=== PATIENT | female | born 1945 | race Caucasian/White ===

== ENCOUNTER 2016-09-09 16:32 | Emergency (ER) | payer OTHER ==
[~2016-09-09] VITALS: Ht 157.5 cm; Wt 76.9 kg
[~2016-09-09 16:32] MED LIST: ADVIN25/60 INH; ALBU1AER9 INH; ATR10 PO; CETI10TA10 PO; CHOL100027 PO; CMD10 PO; CMD5 PO; CYAN250T PO; DEXT30TA7 PO; DULO60CA44 PO; FLV1 PO; GABA1CAP4 PO; LORA0.5T12 PO; LRS10 PO; MULT-506 PO; OYST500T47 PO; PRT/20 PO; SALI1SPR3 NAE; SENN8.6T7 PO; SIMV10TA5 PO; TRAM-10 PO; TRAZ50TA35 PO; TRIA1SPR4
[2016-09-09 16:41] VITALS: TEMP 36.7
--- NOTE | 2016-09-09 17:05 | EMERGENCY ROOM VISIT NOTE ---
History Report prepared by Tim: Ever Hays Under the Supervision of: Dr. Regino Ramsey D.O. First contact with patient: 16:52 Chief Complaint: SHORTNESS OF BREATH Stated Complaint: SOB WEAK History of Present Illness The patient is a 70 year old female who presents to the Emergency Room with complaints of resolved shortness of breath that started around 1200 today. The patient was at work when she became short of breath, and she was not exerting herself at that time. She felt like she was having exacerbation of asthma so she used her rescue inhaler, which provided some relief. The shortness of breath lasted three hours in total. She denies chest pain, abdominal pain, diarrhea, leg pain or swelling. The patient has a history of PE for which she is on Coumadin. She was referred to the ED by her PCP. Per family, the patient has a microscopic bleeding somewhere in her body that sometimes causes her to be anemic. She takes iron supplements so her stools are always black. Source of History: patient, family Onset: 1200 today Position: other (respiratory) Quality: other (short of breath) Timing: resolved Modifying Factors (Relieving): other (inhaler) Associated Symptoms: No abdominal pain, No chest pain, No diarrhea Review of Systems See HPI for pertinent positives & negatives. A total of 10 systems reviewed and were otherwise negative. Past Medical & Surgical Medical Problems: (1) Anxiety (2) Asthma, mild persistent (3) Chronic back pain (4) Depression (5) Dyslipidemia (6) GERD (gastroesophageal reflux disease) (7) History of DVT (deep vein thrombosis) (8) History of pulmonary embolism (9) Hyperhomocysteinemia (10) RITA (iron deficiency anemia) (11) MTHFR mutation Surgical Problems: (1) H/O bilateral oophorectomy (2) Status post hysterectomy (3) Status post insertion of inferior vena caval filter Family History No pertinent family history Social History Smoking Status: Never Smoker Drug Use: none Marital Status: Housing Status: lives with family Occupation Status: employed Current/Historical Medications Scheduled Duloxetine Hcl (Cymbalta), 60 MG PO DAILY Ferrous Sulfate (Kp Ferrous Sulfate), 1 TAB PO TID Gabapentin (Neurontin), 300 MG PO BID Lorazepam (Ativan), 0.5 MG PO Q8 Pantoprazole (Protonix), 20 MG PO BID Simvastatin (Zocor), 10 MG PO HS Trazodone Hcl (Trazodone), 50 MG PO HS Warfarin Sodium (Coumadin), 5 MG PO WK Warfarin Sodium (Coumadin), 10 MG PO [id number] Scheduled PRN Albuterol Sulfate (Proair Respiclick), 2 PUFFS INH Q4 PRN for SOB/Wheezing Allergies Coded Allergies: Erythromycin (Verified Allergy, Intermediate, "VIOLENTLY ILL", 06/29/15) NSAIDs (Unverified Allergy, Intermediate, BLEEDING, 06/29/15) Cat Dander (Verified Adverse Reaction, Intermediate, nasal s/s, 06/29/15) POLLEN (Verified Adverse Reaction, Intermediate, "seasonal" - nasal s/s, ) Physical Exam Vital Signs Date Time Temp Pulse Resp B/P Pulse Ox O2 Delivery O2 Flow Rate FiO2 09/09/16 19:14 77 18 129/85 97 Room Air 09/09/16 18:14 78 14 115/63 96 Room Air 09/09/16 17:33 76 09/09/16 17:29 76 16 116/73 95 Room Air 09/09/16 17:22 Room Air 96 09/09/16 17:22 96 Room Air 09/09/16 17:22 96 Room Air 09/09/16 16:41 36.7 88 18 120/73 96 Room Air Physical Exam GENERAL: Patient is awake, alert, and in no acute distress. Patient is resting comfortably and showing no signs of anxiety EYES: The conjunctivae are clear. The pupils are round and reactive. EARS, NOSE, MOUTH AND THROAT: The nose is without any evidence of any deformity. Mucous membranes are moist tongue is midline NECK: The neck is nontender and supple. RESPIRATORY: Normal respiratory effort is noted there is no evidence of wheezing rhonchi or rales CARDIOVASCULAR: Regular rate and rhythm noted there no murmurs rubs or gallops normal S1 normal S2 GASTROINTESTINAL: The abdomen is soft. Bowel sounds are present in all quadrants. Abdomen is nontender MUSCULOSKELETAL/EXTREMITIES: There is no evidence of gross deformity full range of motion is noted in the hips and shoulders SKIN: There is no obvious evidence of any rash. There are no petechiae, pallor or cyanosis noted. Trace pedal edema left greater than right, no calf tenderness. NEUROLOGIC: Patient is awake alert and oriented x3. Medical Decision & Procedures ER Provider Diagnostic Interpretation: X-ray results as stated below per interpretation by me and the radiologist. CHEST ONE VIEW PORTABLE HISTORY: EVALUATE RESPIRATORY DISTRESS.DYSPNEA COMPARISON: Chest 06/1715. FINDINGS: Moderate to large hiatus hernia. The heart is normal in size. The lungs are clear. No pleural effusions. No pneumothorax. IMPRESSION: No significant change compared to the prior study. No acute process. Hiatus hernia. Electronically signed by: Mario Worthy M.D. 09/09/2016 5:14 PM Dictated Date/Time: 09/09/2016 5:13 PM CHEST CTA for PULMONARY ARTERIES CT DOSE: 519.28 mGy.cm HISTORY: Short of breath. TECHNIQUE: Multiaxial CT images of the chest were performed following the intravenous administration of contrast to evaluate the pulmonary arteries. Maximal intensity projection images were also obtained. COMPARISON STUDY: Chest CTA 05/04/2008. FINDINGS: Large hiatus hernia. No evidence for an aortic dissection. No evidence for pulmonary embolus. The heart is normal in size. No pleural or pericardial effusions. The visualized liver, spleen, adrenal glands are unremarkable. A 9 mm left thyroid nodule. A 5 mm right thyroid nodule. No mediastinal or hilar lymphadenopathy. Stable 1 cm left breast nodule. Therefore, this is likely benign. The central airways are patent. No pneumothorax. A stable 3 mm nodule within the right lower lobe on image 186. Therefore, this is considered to be benign. No new pulmonary nodules. Stable 4 mm nodule within the right lower lobe abutting the major fissure on image 158. This is also considered to be benign. IMPRESSION: 1. No evidence for pulmonary embolus. 2. Large hiatus hernia. 3. Additional stable findings as described above. Electronically signed by: Mario Worthy M.D. 09/09/2016 8:22 PM Dictated Date/Time: 09/09/2016 8:11 PM Laboratory Results 09/09/16 17:25 Red Blood Count 4.18, Mean Corpuscular Volume 86.8, Mean Corpuscular Hemoglobin 28.2, Mean Corpuscular Hemoglobin Concent 32.5, Mean Platelet Volume 10.4, Neutrophils (%) (Auto) 56.3, Lymphocytes (%) (Auto) 27.4, Monocytes (%) (Auto) 10.1, Eosinophils (%) (Auto) 5.1, Basophils (%) (Auto) 0.9, Neutrophils # (Auto ) 2.44, Lymphocytes # (Auto) 1.19, Monocytes # (Auto) 0.44, Eosinophils # (Auto ) 0.22, Basophils # (Auto) 0.04 09/09/16 17:25 Test 09/09/16 17:25 White Blood Count 4.34 K/uL (4.8-10.8) Red Blood Count 4.18 M/uL (4.2-5.4) Hemoglobin 11.8 g/dL (12.0-16.0) Hematocrit 36.3 % (37-47) Mean Corpuscular Volume 86.8 fL (80-100) Mean Corpuscular Hemoglobin 28.2 pg (25-34) Mean Corpuscular Hemoglobin Concent 32.5 g/dl (32-36) Platelet Count 280 K/uL (130-400) Mean Platelet Volume 10.4 fL (7.4-10.4) Neutrophils (%) (Auto) 56.3 % Lymphocytes (%) (Auto) 27.4 % Monocytes (%) (Auto) 10.1 % Eosinophils (%) (Auto) 5.1 % Basophils (%) (Auto) 0.9 % Neutrophils # (Auto) 2.44 K/uL (1.4-6.5) Lymphocytes # (Auto) 1.19 K/uL (1.2-3.4) Monocytes # (Auto) 0.44 K/uL (0.11-0.59) Eosinophils # (Auto) 0.22 K/uL (0-0.5) Basophils # (Auto) 0.04 K/uL (0-0.2) RDW Standard Deviation 42.8 fL (36.4-46.3) RDW Coefficient of Variation 13.5 % (11.5-14.5) Immature Granulocyte % (Auto) 0.2 % Immature Granulocyte # (Auto) 0.01 K/uL (0.00-0.02) Prothrombin Time 42.3 SECONDS (9.0-12.0) Prothromb Time International Ratio 3.7 (0.9-1.1) Activated Partial Thromboplast Time 40.6 SECONDS (21.0-31.0) Partial Thromboplastin Ratio 1.6 Anion Gap 5.0 mmol/L (3-11) Est Creatinine Clear Calc Drug Dose 53.7 ml/min Estimated GFR () 70.8 Estimated GFR (Non- 61.1 BUN/Creatinine Ratio 19.1 (10-20) Calcium Level 8.5 mg/dl (8.5-10.1) Total Bilirubin 0.2 mg/dl (0.2-1) Aspartate Amino Transf (AST/SGOT) 17 U/L (15-37) Alanine Aminotransferase (ALT/SGPT) 24 U/L (12-78) Alkaline Phosphatase 60 U/L (45-117) Troponin I < 0.015 ng/ml (0-0.045) Pro-B-Type Natriuretic Peptide 58 pg/ml (0-900) Total Protein 6.4 gm/dl (6.4-8.2) Albumin 3.4 gm/dl (3.4-5.0) Globulin 3.0 gm/dl (2.5-4.0) Albumin/Globulin Ratio 1.1 (0.9-2) Laboratory results per my review. ECG Indication: SOB/dyspnea Rate (beats per minute): 68 Rhythm: normal sinus Findings: T-wave inversion (Anterior), no ectopy Comparison ECG Date: 2015 Change: no significant change ED Course 1654: The patient was evaluated in room A9b. A complete history and physical examination were performed. 1927: Updated the patient. 2039: Reassessed the patient. Discussed the findings with her. She verbalized understanding and agreement. The patient is ready for discharge. Medical Decision Prior records/ancillary studies reviewed. Triage Nursing notes reviewed. Additional history obtained from the family. The patient's history was concerning for respiratory difficulties. Differential diagnosis: Etiologies such as infections, reactive airway disease, pneumonia, pneumothorax , COPD, CHF, cardiac ischemia, pulmonary embolism, musculoskeletal, gastrointestinal, as well as others were entertained. The patient is a 70-year-old female who presented to the emergency department for an evaluation of shortness of breath. The patient has a history of venous thrombolic disease and pulmonary embolism but is currently taking anticoagulation. The patient did not appear to have any acute ischemic abnormalities on EKG or cardiac biomarkers. CT the chest was obtained and no CT evidence for pulmonary and wasn't was noted. I discussed patient's laboratory and radiographic studies with her. She was encouraged to rest and avoid any strenuous I to E. She was also encouraged to continue all medications as prescribed and return to the emergency department immediately if symptoms change worsen or the need arises. Impression Primary Impression: SOB (shortness of breath) Scribe Attestation The scribe's documentation has been prepared under my direction and personally reviewed by me in its entirety. I confirm that the note above accurately reflects all work, treatment, procedures, and medical decision making performed by me. Departure Information Dispostion Home / Self-Care Referrals Isa Ang M.D. (PCP) Forms HOME CARE DOCUMENTATION FORM, IMPORTANT VISIT INFORMATION, Work Instructions Patient Instructions ED Dyspnea Shortness of Breath, My [facility] Additional Instructions Call your doctor in the morning to schedule follow-up appointment. Discussed the possibility that you may require further studies such as a stress test to further evaluate call your symptoms. Avoid any strenuous activity. Return to the emergency department immediately if symptoms change worsen or the need arises.
--- NOTE | 2016-09-09 17:17 | DIAGNOSTIC IMAGING REPORT ---
CHEST ONE VIEW PORTABLE HISTORY: EVALUATE RESPIRATORY DISTRESS.DYSPNEA COMPARISON: Chest 06/1715. FINDINGS: Moderate to large hiatus hernia. The heart is normal in size. The lungs are clear. No pleural effusions. No pneumothorax. IMPRESSION: No significant change compared to the prior study. No acute process. Hiatus hernia. Electronically signed by: Mario Worthy M.D. 09/09/2016 5:14 PM Dictated Date/Time: 09/09/2016 5:13 PM
[2016-09-09 17:22] VITALS: O2SAT 96; Ht 157.5 cm; Wt 76.9 kg
[2016-09-09] MEDS ORDERED: WARF5TAB90 PO (17:43)
[2016-09-09] MEDS ORDERED: SIMV10TA2 PO (17:43)
[2016-09-09] MEDS ORDERED: DULO60CA44 PO (17:43)
[2016-09-09] MEDS ORDERED: FERR1TAB13 PO (17:43)
[2016-09-09] MEDS ORDERED: TRAZ50TA35 PO (17:43)
[2016-09-09] MEDS ORDERED: GABA-113 PO (17:43)
[2016-09-09] MEDS ORDERED: WARF10TA PO (17:43)
[2016-09-09] MEDS ORDERED: PRT/20 PO (17:43)
[2016-09-09] MEDS ORDERED: ALBU18002 INH (17:43)
[2016-09-09] MEDS ORDERED: LORA-741 PO (17:43)
[2016-09-09 17:46] LABS: BASO % 0.9 %; BASO ABS # 0.04 K/uL (0-0.2); COMPLETE YES; EOS % 5.1 %; HEMATOCRIT 36.3 % (37-47); IG% 0.2 %; LYMPH % 27.4 %; LYMPH ABS # 1.19 K/uL (1.2-3.4); MEAN CELL VOLUME 86.8 fL (80-100); MEAN CORPUSCULAR HEMOGLOBIN 28.2 pg (25-34); MEAN CORPUSCULAR HGB CONC 32.5 g/dl (32-36); MEAN PLATELET VOLUME 10.4 fL (7.4-10.4); MONO % 10.1 %; NEUT % 56.3 %; PLATELET COUNT 280 K/uL (130-400); RED BLOOD COUNT 4.18 M/uL (4.2-5.4); WHITE BLOOD COUNT 4.34 K/uL (4.8-10.8)
[2016-09-09 18:00] LABS: PARTIAL THROMBOPLASTIN RATIO 1.6; PROTHROMBIN TIME (PATIENT) 42.3 SECONDS (9.0-12.0)
[2016-09-09 18:04] LABS: INR 3.7 (0.9-1.1)
[2016-09-09 18:05] LABS: ALT/SGPT 24 U/L (12-78); AST/SGOT 17 U/L (15-37); BLOOD UREA NITROGEN 18 mg/dl (7-18); BUN/CREATININE RATIO 19.1 (10-20); CALCIUM 8.5 mg/dl (8.5-10.1); CARBON DIOXIDE 30 mmol/L (21-32); CHLORIDE 108 mmol/L (98-107); CREATININE 0.95 mg/dl (0.60-1.20); GLUCOSE 110 mg/dl (70-99); POTASSIUM 3.7 mmol/L (3.5-5.1); SODIUM 143 mmol/L (136-145)
[2016-09-09 18:09] LABS: ALB/GLOB RATIO 1.1 (0.9-2); ALKALINE PHOSPHATASE 60 U/L (45-117)
[2016-09-09 19:14] VITALS: BP 129/85; PULSE 77; O2SAT 97
[2016-09-09] MEDS ORDERED: OPTIRAY 320 IV PRN (19:45)
--- NOTE | 2016-09-09 20:24 | DIAGNOSTIC IMAGING REPORT ---
CHEST CTA for PULMONARY ARTERIES CT DOSE: 519.28 mGy.cm HISTORY: Short of breath. TECHNIQUE: Multiaxial CT images of the chest were performed following the intravenous administration of contrast to evaluate the pulmonary arteries. Maximal intensity projection images were also obtained. COMPARISON STUDY: Chest CTA 05/04/2008. FINDINGS: Large hiatus hernia. No evidence for an aortic dissection. No evidence for pulmonary embolus. The heart is normal in size. No pleural or pericardial effusions. The visualized liver, spleen, adrenal glands are unremarkable. A 9 mm left thyroid nodule. A 5 mm right thyroid nodule. No mediastinal or hilar lymphadenopathy. Stable 1 cm left breast nodule. Therefore, this is likely benign. The central airways are patent. No pneumothorax. A stable 3 mm nodule within the right lower lobe on image 186. Therefore, this is considered to be benign. No new pulmonary nodules. Stable 4 mm nodule within the right lower lobe abutting the major fissure on image 158. This is also considered to be benign. IMPRESSION: 1. No evidence for pulmonary embolus. 2. Large hiatus hernia. 3. Additional stable findings as described above. Electronically signed by: Mario Worthy M.D. 09/09/2016 8:22 PM Dictated Date/Time: 09/09/2016 8:11 PM
== END 2016-09-09 21:13 | disposition home or self-care (01) ==
LOC: C.EDB 16:33 → C.EDA 21:13
DX: R06.02 Shortness of breath (principal); E78.5 Hyperlipidemia, unspecified; F41.9 Anxiety disorder, unspecified; J45.30 Mild persistent asthma, uncomplicated; F32.9 Major depressive disorder, single episode, unspecified; K21.9 Gastro-esophageal reflux disease without esophagitis; D50.9 Iron deficiency anemia, unspecified; Z86.711 Personal history of pulmonary embolism; Z86.718 Personal history of other venous thrombosis and embolism; Z90.710 Acquired absence of both cervix and uterus; Z90.722 Acquired absence of ovaries, bilateral; Z98.890 Other specified postprocedural states; Z79.01 Long term (current) use of anticoagulants; Z79.899 Other long term (current) drug therapy; Z88.3 Allergy status to other anti-infective agents; Z88.8 Allergy status to other drugs, medicaments and biological substances

== ENCOUNTER → 2016-09-15 | Outpatient (CLI) | payer OTHER ==
[~2016-09-15] MED LIST changes: -ADVIN25/60 INH; +ALBU18002 INH; -ALBU1AER9 INH; -ATR10 PO; -CETI10TA10 PO; -CHOL100027 PO; -CMD10 PO; -CMD5 PO; -CYAN250T PO; -DEXT30TA7 PO; +FERR1TAB13 PO; -FLV1 PO; +GABA-113 PO; -GABA1CAP4 PO; +LORA-741 PO; -LORA0.5T12 PO; -LRS10 PO; -MULT-506 PO; -OYST500T47 PO; -SALI1SPR3 NAE; -SENN8.6T7 PO; +SIMV10TA2 PO; -SIMV10TA5 PO; -TRAM-10 PO; -TRIA1SPR4; +WARF10TA PO; +WARF5TAB90 PO
--- NOTE | 2016-09-15 14:03 | EXERCISE STRESS ECHO ---
*NOTICE TO RECEIVING REPUBLICAN AGENCY This information is strictly Confidential and protected under [place] law. [place] law prohibits you from making any further disclosure of this information unless further disclosure is expressly permitted by the written consent of the person to whom it pertains or is authorized by law. A general authorization for the release of medical or other information is not sufficient for this purpose. Hospital accepts no responsibility if the information is made available to any other person, INCLUDING THE PATIENT. Interpretation Summary * Name: SAEED LARSON Study Date: 09/15/2016 09:20 AM BP: 133/74 mmHg * Patient Location: [facility] HR: 67 * : 1945 (M/d/yyyy) Gender: Female Height: 61 in * Age: 70 yrs Ethnicity: [place] Weight: 165 lb * Ordering Physician: Jose Mcmillan * Referring Physician: Jose Mcmillan D.O. * Performed By: Padmini Walsh RCS * * Reason For Study: SHORT OF BREATH ON EXERTION * BSA: 1.7 m2 * STRESS STUDY: Normal exercise stress echocardiogram. No echocardiographic or ECG evidence of myocardial ischemia having achieved heart rate adequate for diagnostic purposes. * -- Conclusions -- * STRESS STUDY: Normal exercise stress echocardiogram. No echocardiographic or ECG evidence of myocardial ischemia having achieved heart rate adequate for diagnostic purposes. Procedure Details * ECHOEX, CPT #[id number] * ECHO COLOR FLOW, CPT #[id number] * ECHO DOPPLER, CPT #[id number] Left Ventricle * The left ventricle is normal in size. * There is normal left ventricular wall thickness. * Left ventricular systolic function is normal. * Ejection Fraction = 60-65%. * The left ventricular wall motion is normal at rest. * The left ventricular ejection fraction increases normally with stress. The left ventricular end-systolic cavity size reduces post-stress (normal response). The left ventricular wall motion with stress is normal. Right Ventricle * The right ventricle is normal in size and function. Atria * The left atrial size is normal. * Right atrial size is normal. * No ASD detected; PFO is not assessed. Mitral Valve * The mitral valve is normal. * There is no mitral valve stenosis. * Significant mitral regurgitation is absent. Tricuspid Valve * The tricuspid valve is normal. * There is no tricuspid stenosis. * Significant tricuspid regurgitation is absent. Aortic Valve * The aortic valve is trileaflet. * Aortic stenosis is absent. * There is no significant aortic regurgitation. Pulmonic Valve * The pulmonary valve is not well seen, but the Doppler examination is normal without significant regurgitation or stenosis. Great Vessels * The aortic root and proximal ascending aorta are normal sized. Pericardium * There is no pericardial effusion. Stress Parameters * Normal baseline electrocardiogram. * Stress ECG: No ST changes. No arrhythmias. * The stress ECG response was normal * The stress portion of this study was personally supervised by the undersigned interpreting physician. * Rest heart rate was '67' BPM. * Rest blood pressure was '133/74' * Maximum heart rate achieved was 146 bpm. * Maximum heart rate was 96 % of maximum age-predicted heart rate. * Maximum blood pressure was '169/79' * Total exercise time was '05:12' * Maximum exercise MET level achieved was '7.00' METS * Maximum treadmill speed was '2.50' miles per hour. * Maximum treadmill elevation was '12.00'% grade. MMode 2D Measurements and Calculations IVSd 1.5 cm IVSs 1.9 cm LVIDd 3.8 cm LVIDs 2.6 cm LVPWd 1.2 cm LVPWs 1.5 cm IVS/LVPW 1.2 FS 29.8 % EDV(Teich) 61.0 ml ESV(Teich) 25.8 ml EF(Teich) 57.8 % EDV(cubed) 53.9 ml ESV(cubed) 18.6 ml EF(cubed) 65.5 % % IVS thick 25.0 % % LVPW thick 24.1 % LV mass(C)d 187.6 grams LV mass(C)dI 107.8 grams/m\S\2 LV mass(C)s 172.3 grams LV mass(C)sI 99.0 grams/m\S\2 SV(Teich) 35.3 ml SI(Teich) 20.3 ml/m\S\2 SV(cubed) 35.3 ml SI(cubed) 20.3 ml/m\S\2 Ao root diam 3.6 cm Ao root area 10.3 cm\S\2 ACS 1.8 cm LA dimension 3.1 cm LA/Ao 0.86 LVOT diam 2.0 cm LVOT area 3.1 cm\S\2 LVAd ap4 23.6 cm\S\2 LVLd ap4 6.7 cm EDV(MOD-sp4) 66.6 ml EDV(sp4-el) 70.7 ml LVAs ap4 17.2 cm\S\2 LVLs ap4 6.5 cm ESV(MOD-sp4) 38.4 ml ESV(sp4-el) 38.8 ml EF(MOD-sp4) 42.3 % EF(sp4-el) 45.1 % LVAd ap2 25.7 cm\S\2 LVLd ap2 7.1 cm EDV(MOD-sp2) 74.1 ml EDV(sp2-el) 79.0 ml LVAs ap2 13.9 cm\S\2 LVLs ap2 5.8 cm ESV(MOD-sp2) 26.9 ml ESV(sp2-el) 28.3 ml EF(MOD-sp2) 63.8 % EF(sp2-el) 64.2 % LVLd %diff 5.5 % EDV(MOD-bp) 73.2 ml LVLs %diff -11.76 % ESV(MOD-bp) 30.9 ml EF(MOD-bp) 57.7 % SV(MOD-sp4) 28.2 ml SI(MOD-sp4) 16.2 ml/m\S\2 SV(MOD-sp2) 47.3 ml SI(MOD-sp2) 27.2 ml/m\S\2 SV(MOD-bp) 42.2 ml SI(MOD-bp) 24.3 ml/m\S\2 SV(sp4-el) 31.9 ml SI(sp4-el) 18.3 ml/m\S\2 SV(sp2-el) 50.7 ml SI(sp2-el) 29.1 ml/m\S\2 Doppler Measurements and Calculations MV E max darlene 76.6 cm/sec MV A max darlene 93.8 cm/sec MV E/A 0.82 MV P1/2t max darlene 90.6 cm/sec MV P1/2t 62.9 msec MVA(P1/2t) 3.5 cm\S\2 MV dec slope 421.9 cm/sec\S\2 MV dec time 0.25 sec Ao V2 max 97.7 cm/sec Ao max PG 3.8 mmHg Ao max PG (full) 0.91 mmHg ELYSSA(V,A) 2.7 cm\S\2 ELYSSA(V,D) 2.7 cm\S\2 AI max darlene 331.9 cm/sec AI max PG 44.1 mmHg AI dec slope 153.0 cm/sec\S\2 AI P1/2t 635.3 msec LV V1 max PG 2.9 mmHg LV V1 max 85.2 cm/sec
== END | disposition home or self-care (01) ==
LOC: C.CPL 09:10
PROVIDERS: ATTEND Internal Medicine
DX: R06.02 Shortness of breath (principal)

== ENCOUNTER 2018-09-09 10:04 | Inpatient (IN) ==
[2018-09-09] MEDS ORDERED: ONDANSETRON INJ 2 MG/ML 2 ML VIAL IV STA (11:10)
[2018-09-09] MEDS ORDERED: SODIUM CHLORIDE 0.9% 500 ML IV SCH (11:15)
--- NOTE | 2018-09-09 11:25 | XRay Report ---
XR chest 1V portable CLINICAL HISTORY: weakness COMPARISON STUDY: 09/09/2016 FINDINGS: The heart is normal in size. There is a large hiatal hernia. There is no acute parenchymal consolidation. There is no failure. There are no pleural effusions. There is a calcified density with in left upper lung zone likely representing a granuloma.[ IMPRESSION: 1. Large hiatal hernia 2. No active disease in the chest. Electronically signed by: Evgeny Gordon M.D. 09/09/2018 11:24 AM
[2018-09-09 11:34] LABS: Basophils # (auto) 0.02 K/uL (0-0.2); Basophils % (auto) 0.2 %; Eosinophils # (auto) 0.03 K/uL (0-0.5); Eosinophils % (auto) 0.3 %; Hematocrit (blood only) 30.3 % (37-47); Immature Granulocytes # (auto) 0.07 K/uL (0.00-0.02); Immature Granulocytes % (auto) 0.7 %; Mean Corpuscular Volume 87.8 fL (80-100); Mean Platelet Volume 10.1 fL (7.4-10.4); Monocytes # (auto) 0.56 K/uL (0.11-0.59); Monocytes % (auto) 5.6 %; Neutrophils % (auto) 77.2 %; Nucleated RBC # (auto) 0.04 K/uL (0-0); Nucleated RBC % (auto) 0.4 %; Platelet Count 362 K/uL (130-400); RDW Coefficient of Variation 13.8 % (11.5-14.5); RDW Standard Deviation 43.8 fL (36.4-46.3); Red Blood Count 3.45 M/uL (4.2-5.4); White Blood Count 9.98 K/uL (4.8-10.8)
[2018-09-09 11:45] LABS: INR 2.2 (0.9-1.1); Partial Thromboplastin Ratio 1.1; Partial Thromboplastin Time 28.5 Seconds (21.0-31.0); Prothrombin Time 20.9 Seconds (9.0-12.0)
[2018-09-09 11:53] LABS: iSTAT Hemoglobin 9.9 g/dl (12.0-16.0); iSTAT Ionized Calcium 1.16 mmol/l (1.12-1.32); iSTAT Potassium 4.3 mEq/L (3.3-5.0)
[2018-09-09 12:08] LABS: Alanine Aminotransferase 37 U/L (12-78); Albumin Level 3.3 gm/dl (3.4-5.0); Aspartate Aminotransferase 17 U/L (15-37); BUN Creatinine Ratio 45.4 (10-20); Blood Urea Nitrogen 51 mg/dl (7-18); Calcium 8.5 mg/dl (8.5-10.1); Carbon Dioxide 25 mmol/L (21-32); Chloride 109 mmol/L (98-107); Creatinine Clr Calc Pharmacy 44.7 ml/min; Est GFR (African American) 57.2; Est GFR (Non-African American) 49.4; Glucose 168 mg/dl (70-99); Potassium 4.2 mmol/L (3.5-5.1); Sodium 140 mmol/L (136-145)
[2018-09-09 12:13] LABS: Alkaline Phosphatase 55 U/L (45-117); Bilirubin,Total 0.4 mg/dl (0.2-1); Globulin 3.3 gm/dl (2.5-4.0); Total Protein 6.6 gm/dl (6.4-8.2); Troponin I < 0.015 ng/ml (0-0.045)
--- NOTE | 2018-09-09 13:31 | Emergency Department Note ---
Entered by Lu Olivas acting as a scribe for History of Present Illness General Chief complaint: GI Assessment Stated complaint: VOMITING DARK, DARK STOOL, HX OF CLOTS IN LUNGS Time Seen by Provider: 09/09/18 11:00 Source: patient and family () History of Present Illness Onset (ago): day(s) 2 Location: abdomen Pain Consistency: + other (episode) Maximum Pain Intensity: 3 Quality: + other (vomiting) Associated symptoms: + shortness of breath, + weakness and + other (frequent tarry stools, weakness, paleness) The patient is a 72 year old female that is presenting to the Emergency Room with complaints of an episode of vomiting that occurred 2 days ago and was followed by frequent dark tarry bowel movements. The patient reports that she started vomiting violently and that the vomit had a coffee ground consistency. She states that she started having frequent bowel movements which is unusual for her as she has an elongated colon. She notes she has felt weak and is unable to move around on her own. She states that her assists her in getting back and forth from the restroom. She reports that she is having difficulties breathing when going up stairs. The patient states she has a history of asthma. She notes that she has a history of anemia and receives iron infusions as well as taking daily iron supplements. She notes that she received her last iron infusion in 02/2018. She reports that her iron has been within normal limits recently and that her last CMP was normal. She states she is being followed by a GI specialist in [facility] for a suspected GI bleed that they have not been able to locate with endoscopies. The patient notes that her last EKG was abnormal and that she currently takes Coumadin for a blood clot that was found in her lungs in 2007. She reports that she last had blood work done a couple of weeks ago in [facility]. The patient notes that she will be undergoing a stress test in 3 days. She states that she has received blood transfusions in the past but that she has not received one in the past 3 months. Her that the patient has been paler than normal since this episode began. Home Medications Home Medications Medication Instructions Recorded Confirmed Type buspirone 10 mg PO BID 09/09/18 09/09/18 History calcium citrate-vitamin D3 1 tab PO DAILY 09/09/18 09/09/18 History [Calcium Citrate + D] cetirizine [Zyrtec] 5 mg PO QAM 09/09/18 09/09/18 History cholecalciferol (vitamin D3) 1,000 unit PO DAILY 09/09/18 09/09/18 History [Vitamin D3] cyanocobalamin (vitamin B-12) 1,000 mcg PO DAILY 09/09/18 09/09/18 History [Vitamin B-12] duloxetine 30 mg PO QAM 09/09/18 09/09/18 History duloxetine 60 mg PO QAM 09/09/18 09/09/18 History ferrous sulfate 325 mg PO BID 09/09/18 09/09/18 History folic acid 400 mcg PO DAILY 09/09/18 09/09/18 History gabapentin 300 mg PO HS 09/09/18 09/09/18 History guaifenesin 400 mg PO HS 09/09/18 09/09/18 History lorazepam 0.25 mg PO TID 09/09/18 09/09/18 History lorazepam 0.5 mg PO HS 09/09/18 09/09/18 History metoprolol succinate 25 mg PO QAM 09/09/18 09/09/18 History multivitamin 1 tab PO QAM 09/09/18 09/09/18 History omega 4-vdm-tbr-fish oil [Fish Oil] 1 cap PO QPM 09/09/18 09/09/18 History oxybutynin chloride 15 mg PO DAILY 09/09/18 09/09/18 History pantoprazole 20 mg PO BID 09/09/18 09/09/18 History pyridoxine (vitamin B6) [Vitamin 100 mg PO QPM 09/09/18 09/09/18 History B-6] simvastatin 10 mg PO HS 09/09/18 09/09/18 History trazodone 50 mg PO HS 09/09/18 09/09/18 History warfarin 10 mg PO DAILY 09/09/18 09/09/18 History Allergies Allergy/AdvReac Type Severity Reaction Status Date / Time erythromycin base Allergy Intermediate "VIOLENTLY Verified 06/29/15 16:28 ILL" NSAIDS (Non-Steroidal Allergy Intermediate BLEEDING Unverified 06/29/15 16:28 Anti-Inflamma cat dander AdvReac Intermediate nasal s/s Verified 06/29/15 16:28 pollen extracts AdvReac Intermediate "seasonal" Verified 06/29/15 16:28 - nasal s/s Past Med/Surg History Medical History Chronic back pain (Chronic) History of pulmonary embolism (Chronic) History of DVT (deep vein thrombosis) (Chronic) Dyslipidemia (Chronic) Depression (Chronic) GERD (gastroesophageal reflux disease) (Chronic) Anxiety (Chronic) Asthma, mild persistent (Chronic) Hyperhomocysteinemia (Chronic) MTHFR mutation (Chronic) RITA (iron deficiency anemia) (Chronic) Anemia (Acute) Surgical History Status post insertion of inferior vena caval filter (Chronic) Status post hysterectomy (Chronic) H/O bilateral oophorectomy (Chronic) Family History Other Family history non-contributory Social History marital status: Current Living Situation: Spouse current occupational status: retired Feels Safe at Home: Yes Smoking Status: Never smoker Review of Systems See HPI for pertinent positives & negatives. and A total of 10 systems reviewed and were otherwise negative Physical Exam Vital Signs Vital Signs - 24 hr 09/09/18 10:10 09/09/18 11:33 09/09/18 13:47 Temperature 36.6 C Temperature Source Oral Sepsis Recent Fever Within 48 Hours No Sepsis New/Unexplained Change in Mental Status No Sepsis Action Taken by Nursing No Action Required Pulse Rate 118 H Pulse Rate [Apical] 102 H 101 H Pulse Rhythm [Apical] Regular Regular Respiratory Rate 16 18 18 Respiratory Effort / Characteristics Non-Labored Spontaneous Non-Labored Spontaneous Respiratory Depth Normal Normal Respiratory Pattern Regular Regular Blood Pressure 99/71 L Blood Pressure [Left Arm] 99/67 L 115/69 Blood Pressure Mean 80 Blood Pressure Mean [Left Arm] 77 84 Pulse Oximetry 97 97 99 Oxygen Delivery Method Room Air Room Air Room Air CONSTITUTIONAL/VITAL SIGNS: Reviewed / noted above. GENERAL: Non-toxic in appearance. INTEGUMENTARY: Warm and dry. Skin is pale. HEAD: Normocephalic. EYES: without scleral icterus or trauma. ENT/OROPHARYNX: clear and moist. LYMPHADENOPATHY/NECK: Is supple without lymphadenopathy or meningismus. RESPIRATORY: Lungs clear and equal. CARDIOVASCULAR: Regular rate and rhythm. GI/ABDOMEN: Soft and nontender. No organomegaly or pulsatile mass. No rebound or guarding. Normal bowel sounds.Stool is black and guaiac positive. EXTREMITIES: Warm and well perfused. BACK: No CVA tenderness. NEUROLOGICAL: Intact without focal deficits. PSYCHIATRIC: normal affect. MUSCULOSKELETAL: Normally developed with good muscle tone. Course 1103:The patient was evaluated in room B10. A complete history and physical examination was performed. 1320: I updated the patient on her current lab and imaging results. I discussed her treatment options including being evaluated for further management and care. The patient is agreeable to the plan. 1402: I reviewed the patient's case with Hal Lyn, who will evaluate the patient for further management. 1415: Upon reevaluation, the patient is resting comfortably. She verbalized agreement of the treatment plan. The patient will be evaluated for further management and care. Administered Medications Discontinued Medications Ranitidine HCl 50 mg/ Dextrose 102 mls @ 200 mls/hr IV NOW STA Stop: 09/09/18 11:38 Last Infusion: 09/09/18 12:18 Dose: 0 mls/hr Documented by: [id number] Admin: 09/09/18 11:43 Dose: 200 mls/hr Documented by: [id number] Sodium Chloride (Nss) 500 mls @ 999 mls/hr IV .Q31M MOHAMUD Stop: 09/09/18 11:45 Last Infusion: 09/09/18 12:02 Dose: 0 mls/hr Documented by: [id number] Admin: 09/09/18 11:28 Dose: 999 mls/hr Documented by: [id number] Ondansetron HCl (Zofran) 4 mg IV NOW STA Stop: 09/09/18 11:11 Last Admin: 09/09/18 11:28 Dose: 4 mg Documented by: [id number] Medical Decision Making Differential Diagnosis Differential diagnosis: Etiologies such as diverticulosis, AVM, coagulopathy, colitis, inflammatory bowel disease, malignancy, Columba-Hamilton tear, esophagitis, peptic ulcer disease, variceal bleed, gastritis, epistaxis, fissure, hemorrhoids, aswell as others were entertained. Medical Records Attestation: I reviewed the patient's medical records. Home Medications Current Medication List: was personally reviewed by me Laboratory Data Attestation: I reviewed the patient's lab results. Result diagrams: 09/09/18 11:15 09/09/18 11:15 Lab Results 09/09/18 09/09/18 09/09/18 Range/Units 11:10 11:14 11:15 WBC 9.98 (4.8-10.8) K/uL RBC 3.45 L (4.2-5.4) M/uL Hgb 10.0 L (12.0-16.0) g/dL POC Hgb (12.0-16.0) g/dl Hct 30.3 L (37-47) % POC Hct (37-47) % MCV 87.8 (80-100) fL MCH 29.0 (25-34) pg MCHC 33.0 (32-36) g/dL RDW Std Deviation 43.8 (36.4-46.3) fL RDW Coeff of Brandon 13.8 (11.5-14.5) % Plt Count 362 (130-400) K/uL MPV 10.1 (7.4-10.4) fL Immature Gran % (Auto) 0.7 % Neut % (Auto) 77.2 % Lymph % (Auto) 16.0 % Hood % (Auto) 5.6 % Eos % (Auto) 0.3 % Baso % (Auto) 0.2 % Immature Gran # (Auto) 0.07 H (0.00-0.02) K/uL Neut # (Auto) 7.70 H (1.4-6.5) K/uL Lymph # (Auto) 1.60 (1.2-3.4) K/uL Hood # (Auto) 0.56 (0.11-0.59) K/uL Eos # (Auto) 0.03 (0-0.5) K/uL Baso # (Auto) 0.02 (0-0.2) K/uL Absolute Nucleated RBC 0.04 H (0-0) K/uL Nucleated RBC % (auto) 0.4 % PT (9.0-12.0) Seconds INR (0.9-1.1) APTT (21.0-31.0) Seconds PTT Ratio POC Sodium (135-144) mEq/L Sodium (136-145) mmol/L POC Potassium (3.3-5.0) mEq/L Potassium (3.5-5.1) mmol/L POC Chloride (101-112) mEq/L Chloride (98-107) mmol/L Carbon Dioxide (21-32) mmol/L POC Total CO2 (24-31) mEq/l Anion Gap (3-11) POC Anion Gap (16-25) mmol/L POC BUN (7-18) mg/dl BUN (7-18) mg/dl Creatinine (0.6-1.2) mg/dl POC Creatinine (0.6-1.3) mg/dl Est Cr Clr Drug Dosing ml/min Est GFR ( Amer) Est GFR (Non-Af Amer) BUN/Creatinine Ratio (10-20) Glucose (70-99) mg/dl POC Glucose (other) (70-99) mg/dl Calcium (8.5-10.1) mg/dl POC Ioniz Calcium Kandace (1.12-1.32) mmol/l Total Bilirubin (0.2-1) mg/dl AST (15-37) U/L ALT (12-78) U/L Alkaline Phosphatase (45-117) U/L Troponin I (0-0.045) ng/ml Total Protein (6.4-8.2) gm/dl Albumin (3.4-5.0) gm/dl Globulin (2.5-4.0) gm/dl Albumin/Globulin Ratio (0.9-2) POC Stool Occult Blood Positive H (Negative) Blood Type O Positive Antibody Screen NEGATIVE 09/09/18 09/09/18 09/09/18 Range/Units 11:15 11:15 11:21 WBC (4.8-10.8) K/uL RBC (4.2-5.4) M/uL Hgb (12.0-16.0) g/dL POC Hgb 9.9 L (12.0-16.0) g/dl Hct (37-47) % POC Hct 29 L (37-47) % MCV (80-100) fL MCH (25-34) pg MCHC (32-36) g/dL RDW Std Deviation (36.4-46.3) fL RDW Coeff of Brandon (11.5-14.5) % Plt Count (130-400) K/uL MPV (7.4-10.4) fL Immature Gran % (Auto) % Neut % (Auto) % Lymph % (Auto) % Hood % (Auto) % Eos % (Auto) % Baso % (Auto) % Immature Gran # (Auto) (0.00-0.02) K/uL Neut # (Auto) (1.4-6.5) K/uL Lymph # (Auto) (1.2-3.4) K/uL Hood # (Auto) (0.11-0.59) K/uL Eos # (Auto) (0-0.5) K/uL Baso # (Auto) (0-0.2) K/uL Absolute Nucleated RBC (0-0) K/uL Nucleated RBC % (auto) % PT 20.9 H (9.0-12.0) Seconds INR 2.2 H (0.9-1.1) APTT 28.5 (21.0-31.0) Seconds PTT Ratio 1.1 POC Sodium 140 (135-144) mEq/L Sodium 140 (136-145) mmol/L POC Potassium 4.3 (3.3-5.0) mEq/L Potassium 4.2 (3.5-5.1) mmol/L POC Chloride 104 (101-112) mEq/L Chloride 109 H (98-107) mmol/L Carbon Dioxide 25 (21-32) mmol/L POC Total CO2 22 L (24-31) mEq/l Anion Gap 6.0 (3-11) POC Anion Gap 19.0 (16-25) mmol/L POC BUN 43 H (7-18) mg/dl BUN 51 H (7-18) mg/dl Creatinine 1.12 (0.6-1.2) mg/dl POC Creatinine 1.0 (0.6-1.3) mg/dl Est Cr Clr Drug Dosing 44.7 ml/min Est GFR ( Amer) 57.2 Est GFR (Non-Af Amer) 49.4 BUN/Creatinine Ratio 45.4 H (10-20) Glucose 168 H (70-99) mg/dl POC Glucose (other) 171 H (70-99) mg/dl Calcium 8.5 (8.5-10.1) mg/dl POC Ioniz Calcium Kandace 1.16 (1.12-1.32) mmol/l Total Bilirubin 0.4 (0.2-1) mg/dl AST 17 (15-37) U/L ALT 37 (12-78) U/L Alkaline Phosphatase 55 (45-117) U/L Troponin I < 0.015 (0-0.045) ng/ml Total Protein 6.6 (6.4-8.2) gm/dl Albumin 3.3 L (3.4-5.0) gm/dl Globulin 3.3 (2.5-4.0) gm/dl Albumin/Globulin Ratio 1.0 (0.9-2) POC Stool Occult Blood (Negative) Blood Type Antibody Screen Imaging Data Radiologist's Impression: Radiology results as stated below per my review and the radiologist's interpretation: XR chest 1V portable CLINICAL HISTORY: weakness COMPARISON STUDY: 09/09/2016 FINDINGS: The heart is normal in size. There is a large hiatal hernia. There is no acute parenchymal consolidation. There is no failure. There are no pleural effusions. There is a calcified density within left upper lung zone likely representing a granuloma.[ IMPRESSION: 1. Large hiatal hernia 2. No active disease in the chest. Electronically signed by: Evgeny Gordon M.D. 09/09/2018 11:24 AM ECG Data Attestation: I personally reviewed and interpreted this ECG as follows: Indication: vomiting Rate (beats per minute): 100 Rhythm: normal sinus Findings: no PAC, no PVC, no ST depression, no ST elevation, no acute ischemic change and no ectopy Blood Pressure Blood Pressure Findings: Normal blood pressure MDM Narrative This is a 72-year-old female who presents to the ED with a chief complaint of nausea, vomiting and coffee-ground emesis. She also reports tarry black stools for the past couple of days. The patient takes iron at home. The patient was very weak this morning and was unable to get up herself. The patient is on warfarin for history of PE. She does have an IVC filter. She normally sees Dr. Rodríguez. She states that she has had multiple workup in the past for GI bleeding but the source was never found. Her physical exam reveals that she is somewhat pale in color. She has black guaiac positive stools. She otherwise appears somewhat weak and fatigued. An EKG shows a normal sinus rhythm. Hemoglobin is 10. INR is 2.2. BUN is 51. Troponin is negative. Chest x-ray was negative for acute disease. The patient symptoms are concerning for an upper GI bleed. She was given IV Zofran for nausea and IV Zantac as well as IV fluids. Because of the patient's weakness and complex of symptoms, abnormal labs and history, she will be seen by the hospitalist for further inpatient evaluation and care. Impression & Plan GI bleed, Anemia, Weakness : GI bleed Qualifiers: GI bleed type/associated pathology: unspecified gastrointestinal hemorrhage type Qualified Code(s): K92.2 - Gastrointestinal hemorrhage, unspecified Anemia Qualifiers: Anemia type: unspecified type Qualified Code(s): D64.9 - Anemia, unspecified The scribe's documentation has been prepared under my direction and personally reviewed by me in its entirety. I confirm that the note above accurately reflects all work, treatment, procedures, and medical decision making performed by me.
[2018-09-09] MEDS ORDERED: IOVERSOL 100ml IV PRN (16:01)
--- NOTE | 2018-09-09 16:25 | CT Scan Report ---
CT abd pelvis IV con only CLINICAL HISTORY: Left-sided abdominal pain. Possible gastrointestinal hemorrhage. COMPARISON STUDY: CT scan performed January 2012 TECHNIQUE: The patient was scanned in a dynamic helical fashion during intravenous administration of 94 cc of Optiray 320. A dose lowering technique was utilized adhering to the principles of ALARA. CT DOSE: 944.68 mGycm FINDINGS: Lower chest: There is a large hiatal hernia. Liver: There is a 3 mm hypodensity within the lateral segment the left hepatic lobe likely representi ng a cyst. Gallbladder: Unremarkable. Spleen: Normal in size and attenuation. Pancreas: Unremarkable. Adrenal glands: Unremarkable. Kidneys: There is symmetric renal cortical enhancement. The kidneys are normal in size without hydron ephrosis. Bowel: There is no evidence of acute diverticulitis. The appendix appears normal. There are mildly di stended fluid-filled central abdominal small bowel loops. A discrete high-grade transition zone is no t visualized. The findings likely represent an ileus although low-grade or early bowel obstruction co uld appear similar. Peritoneum: There is no intraperitoneal free air or abdominal ascites. Vasculature: There is no evidence of abdominal aortic aneurysm. An IVC filter is visualized. Adenopathy: None. Pelvic viscera: The uterus appears surgically absent Skeletal structures: No destructive osseous lesions are seen. IMPRESSION: 1. Mildly dilated fluid-filled mid abdominal small bowel loops. Given the lack of a high-grade transi tion zone, as well as the lack of gastric duodenal or proximal small bowel dilatation, the findings a re likely secondary to a focal ileus. Clinical follow-up is advocated 2. Normal appendix. No evidence of acute diverticulitis. 3. No evidence of free air 4. Large hiatal hernia with an intrathoracic stomach. Electronically signed by: Evgeny Gordon M.D. 09/09/2018 4:23 PM
[2018-09-09] MEDS: SODIUM CHLORIDE 0.9% 1000ML 1,000 ML IV SCH ×2 (16:30→23:28)
--- NOTE | 2018-09-09 17:44 | History & Physical Report ---
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 Symptoms also associated with left sided abdomen pain, and dark stools, and weakness. Since her symptoms she on , she stopped taking her coumadin but INR on presentation still therapeutic 2.2. Hgb on admission is 10 in comparison to outpatient 07/21/18 lab of 13.6 Patient denies fever, denies loss of consciousness, no dizziness, no chest pain, no shortness of breath, no problems with urination family history: son had GuillainBarr syndrome September 09, 2018 Assessment & Plan (1) GI bleed: -admission for rule out GI bleed -72 year old with history of bilateral pulmonary embolism and DVT in 2007 with IVC filter and hypercoagulable workup in the past positive for Compound Heterozygous MTHFR Mutation (positive for C677T and [id number]) who has been on coumadin for anticoagulation and on 09/07/18 with symptoms of coffee ground emesis or 3 episodes - once on , once on Tuesday, and once prior to coming to the ED on Tuesday09/09/18. Symptoms also associated with left sided abdomen pain, and dark stools, and weakness. Since her symptoms she on , she stopped taking her coumadin but INR on presentation still therapeutic 2.2. Hgb on admission is 10 in comparison to outpatient 07/21/18 lab of 13.6 -Hgb is 10 to 9, trend CBC -NPO after midnight for gastroenterology service to do endoscopy on 09/09/[address] Rodríguez -vitamin K given on 09/09/18 to reverse INR -give IV fluids, ranitidine drip CT abdomen 1. Mildly dilated fluid-filled mid abdominal small bowel loops. Given the lack of a high-grade transition zone, as well as the lack of gastric duodenal or proximal small bowel dilatation, the findings are likely secondary to a focal ileus. Clinical follow-up is advocated 2. Normal appendix. No evidence of acute diverticulitis. 3. No evidence of free air 4. Large hiatal hernia with an intrathoracic stomach Iron deficiency anemia -hold off iron for now History of thromboembolism -history of bilateral pulmonary embolism and DVT in 2007 with IVC filter and hypercoagulable workup in the past positive for Compound Heterozygous MTHFR Mutation (positive for C677T and [id number]) -attempt to reverse INR with vitamin K in context of possible GI bleed and planned GI endoscopy Patient was placed on low dose metoprolol by outpatient cardiology service for outpatient complaints of dyspnea on exertion -resting echocardiogram in 07/2018 with LV ejection fraction > 70 % -hold off metoprolol for now while doing GI workup Chronic Kidney Disease stage III -monitor renal function Depression/Anxiety -continue home medications DVT ppx: SCDs for now Full Code [phone] daughter [phone] History of Present Illness Primary Care Provider: Jose Mcmillan, Allergies Allergy/AdvReac Type Severity Reaction Status Date / Time erythromycin base Allergy Intermediate "VIOLENTLY Verified 06/29/15 16:28 ILL" NSAIDS (Non-Steroidal Allergy Intermediate BLEEDING Unverified 06/29/15 16:28 Anti-Inflamma cat dander AdvReac Intermediate nasal s/s Verified 06/29/15 16:28 pollen extracts AdvReac Intermediate "seasonal" Verified 06/29/15 16:28 - nasal s/s Home Medications Home Medications Medication Instructions Recorded Confirmed Type buspirone 10 mg PO BID 09/09/18 09/09/18 History calcium citrate-vitamin D3 1 tab PO DAILY 09/09/18 09/09/18 History [Calcium Citrate + D] cetirizine [Zyrtec] 5 mg PO QAM 09/09/18 09/09/18 History cholecalciferol (vitamin D3) 1,000 unit PO DAILY 09/09/18 09/09/18 History [Vitamin D3] cyanocobalamin (vitamin B-12) 1,000 mcg PO DAILY 09/09/18 09/09/18 History [Vitamin B-12] duloxetine 30 mg PO QAM 09/09/18 09/09/18 History duloxetine 60 mg PO QAM 09/09/18 09/09/18 History ferrous sulfate 325 mg PO BID 09/09/18 09/09/18 History folic acid 400 mcg PO DAILY 09/09/18 09/09/18 History gabapentin 300 mg PO HS 09/09/18 09/09/18 History guaifenesin 400 mg PO HS 09/09/18 09/09/18 History lorazepam 0.25 mg PO TID 09/09/18 09/09/18 History lorazepam 0.5 mg PO HS 09/09/18 09/09/18 History metoprolol succinate 25 mg PO QAM 09/09/18 09/09/18 History multivitamin 1 tab PO QAM 09/09/18 09/09/18 History omega 6-ojs-ite-fish oil [Fish Oil] 1 cap PO QPM 09/09/18 09/09/18 History oxybutynin chloride 15 mg PO DAILY 09/09/18 09/09/18 History pantoprazole 20 mg PO BID 09/09/18 09/09/18 History pyridoxine (vitamin B6) [Vitamin 100 mg PO QPM 09/09/18 09/09/18 History B-6] simvastatin 10 mg PO HS 09/09/18 09/09/18 History trazodone 50 mg PO HS 09/09/18 09/09/18 History warfarin 7.5 mg PO DIRECTED 09/09/18 09/09/18 History Past Med/Surg History Medical History Chronic back pain (Chronic) History of pulmonary embolism (Chronic) History of DVT (deep vein thrombosis) (Chronic) Dyslipidemia (Chronic) Depression (Chronic) GERD (gastroesophageal reflux disease) (Chronic) Anxiety (Chronic) Asthma, mild persistent (Chronic) Hyperhomocysteinemia (Chronic) MTHFR mutation (Chronic) RITA (iron deficiency anemia) (Chronic) Anemia (Acute) Surgical History Status post insertion of inferior vena caval filter (Chronic) Status post hysterectomy (Chronic) H/O bilateral oophorectomy (Chronic) Family History Other Family history non-contributory Social History Preferred Language: [place] [employer] Required: No Beliefs That Will Affect Care: None marital status: Current Living Situation: Spouse current occupational status: retired Other Information That Helps Us Care for You: No Feels Safe at Home: Yes Safety Concerns: Feels Safe At This Time Smoking Status: Unknown if ever smoked Hx Substance Use: No Review of Systems Review of Systems: All systems reviewed & are unremarkable except as noted in HPI & below Physical Exam Constitutional: WD/WN, vitals as above Eyes: PERRL, conjunctivae normal, anicteric sclerae EOM intact bilaterally ENMT: external ear and nose normal, oropharynx normal Neck: trachea midline, no thyromegaly Respiratory: normal respiratory effort, lungs clear to auscultation Cardiovascular: RRR, no murmur, no edema Gastrointestinal (Abdomen): Inspection/Auscultation: abdomen normal to inspection and normal bowel sounds Musculoskeletal: Head/Neck/Chest: normocephalic and head atraumatic Neurologic: PERRL, EOMI, accommodation nl, no face palsy, no dysarthria Psychiatric: A+Ox3, euthymic affect Results & Data Vital Signs (Past 12 Hours) Vital Signs Temp Pulse Pulse Resp BP BP Pulse Ox 09/09/18 16:00 36.9 C 98 H 18 118/70 99 09/09/18 15:30 104 H 17 123/78 96 09/09/18 13:47 101 H 18 115/69 99 09/09/18 11:33 102 H 18 99/67 L 97 09/09/18 10:10 36.6 C 118 H 16 99/71 L 97 (1) GI bleed GI bleed type/associated pathology: unspecified gastrointestinal hemorrhage type Qualified Code(s): K92.2 - Gastrointestinal hemorrhage, unspecified
[2018-09-09] MEDS ORDERED: PHYTONADIONE 5 MG in SODIUM CHLORIDE 0.9% 50 ML IV ONE (17:45)
[2018-09-09 18:24] LABS: Hematocrit (blood only) 27.9 % (37-47); Mean Corpuscular Hgb Conc 32.3 g/dL (32-36); Mean Corpuscular Volume 90.9 fL (80-100); Nucleated RBC # (auto) 0.05 K/uL (0-0); Nucleated RBC % (auto) 0.5 %; Platelet Count 328 K/uL (130-400); RDW Coefficient of Variation 14.1 % (11.5-14.5); Red Blood Count 3.07 M/uL (4.2-5.4)
[2018-09-09] MEDS: LORazepam 0.5 MG TAB PO SCH ×2 (18:24→22:03)
[2018-09-09] MEDS ORDERED: ONDANSETRON INJ 2 MG/ML 2 ML VIAL IV PRN (21:32)
[2018-09-09] MEDS: TRAZODONE HCL 50 MG TAB PO SCH (22:03)
[2018-09-10] MEDS ORDERED: LORazepam 0.25 MG/0.5 ML VIAL IV STA (00:02)
[2018-09-10] MEDS ORDERED: PROMETHAZINE HCL 12.5 MG in SODIUM CHLORIDE 0.9% 50 ML IV STA (00:02)
[2018-09-10 06:13] LABS: Basophils # (auto) 0.02 K/uL (0-0.2); Basophils % (auto) 0.3 %; Eosinophils % (auto) 1.7 %; Hematocrit (blood only) 21.6 % (37-47); Immature Granulocytes # (auto) 0.05 K/uL (0.00-0.02); Immature Granulocytes % (auto) 0.9 %; Lymphocytes # (auto) 1.49 K/uL (1.2-3.4); Lymphocytes % (auto) 25.7 %; Mean Corpuscular Hgb Conc 32.4 g/dL (32-36); Mean Corpuscular Volume 89.6 fL (80-100); Mean Platelet Volume 9.9 fL (7.4-10.4); Monocytes # (auto) 0.42 K/uL (0.11-0.59); Monocytes % (auto) 7.2 %; Neutrophils # (auto) 3.72 K/uL (1.4-6.5); Neutrophils % (auto) 64.2 %; Platelet Count 249 K/uL (130-400); RDW Coefficient of Variation 14.1 % (11.5-14.5); RDW Standard Deviation 46.3 fL (36.4-46.3); Red Blood Count 2.41 M/uL (4.2-5.4)
[2018-09-10] MEDS ORDERED: ACETAMINOPHEN 325 MG TAB PO STA (06:17)
[2018-09-10] MEDS ORDERED: FUROSEMIDE 20 MG in SYRINGE 0 ML IV ONE (06:30)
[2018-09-10 06:41] LABS: INR 1.3 (0.9-1.1); Prothrombin Time 13.1 Seconds (9.0-12.0)
[2018-09-10 06:44] LABS: Polychromasia 1+
[2018-09-10 06:58] LABS: Albumin Globulin Ratio 1.1 (0.9-2); Albumin Level 2.6 gm/dl (3.4-5.0); BUN Creatinine Ratio 30.4 (10-20); Bilirubin,Total 0.3 mg/dl (0.2-1); Calcium 7.6 mg/dl (8.5-10.1); Creatinine Clr Calc Pharmacy 59.8 ml/min; Est GFR (African American) 79.9; Est GFR (Non-African American) 68.9; Globulin 2.4 gm/dl (2.5-4.0); Total Protein 5.1 gm/dl (6.4-8.2)
--- NOTE | 2018-09-10 07:27 | Gastrointestinal Consultation ---
Date of Consultation September 10, 2018 History of Present Illness Attending Physician: Ced Sheppard MD 72 yo female with h/o PE and DVT and IVC filter, hypercoag on coumadin; also with h/o large HH, admit with coffee gound emesis and melena. Mild hypotension overnight, BUN increased, hgb drop. Placed on H2 reji drip o/n. Allergies Allergy/AdvReac Type Severity Reaction Status Date / Time erythromycin base Allergy Intermediate "VIOLENTLY Verified 06/29/15 16:28 ILL" NSAIDS (Non-Steroidal Allergy Intermediate BLEEDING Unverified 06/29/15 16:28 Anti-Inflamma cat dander AdvReac Intermediate nasal s/s Verified 06/29/15 16:28 pollen extracts AdvReac Intermediate "seasonal" Verified 06/29/15 16:28 - nasal s/s Home Medications Home Medications Medication Instructions Recorded Confirmed Type buspirone 10 mg PO BID 09/09/18 09/09/18 History calcium citrate-vitamin D3 1 tab PO DAILY 09/09/18 09/09/18 History [Calcium Citrate + D] cetirizine [Zyrtec] 5 mg PO QAM 09/09/18 09/09/18 History cholecalciferol (vitamin D3) 1,000 unit PO DAILY 09/09/18 09/09/18 History [Vitamin D3] cyanocobalamin (vitamin B-12) 1,000 mcg PO DAILY 09/09/18 09/09/18 History [Vitamin B-12] duloxetine 30 mg PO QAM 09/09/18 09/09/18 History duloxetine 60 mg PO QAM 09/09/18 09/09/18 History ferrous sulfate 325 mg PO BID 09/09/18 09/09/18 History folic acid 400 mcg PO DAILY 09/09/18 09/09/18 History gabapentin 300 mg PO HS 09/09/18 09/09/18 History guaifenesin 400 mg PO HS 09/09/18 09/09/18 History lorazepam 0.25 mg PO TID 09/09/18 09/09/18 History lorazepam 0.5 mg PO HS 09/09/18 09/09/18 History metoprolol succinate 25 mg PO QAM 09/09/18 09/09/18 History multivitamin 1 tab PO QAM 09/09/18 09/09/18 History omega 7-[id number]-zsb-fish oil [Fish Oil] 1 cap PO QPM 09/09/18 09/09/18 History oxybutynin chloride 15 mg PO DAILY 09/09/18 09/09/18 History pantoprazole 20 mg PO BID 09/09/18 09/09/18 History pyridoxine (vitamin B6) [Vitamin 100 mg PO QPM 09/09/18 09/09/18 History B-6] simvastatin 10 mg PO HS 09/09/18 09/09/18 History trazodone 50 mg PO HS 09/09/18 09/09/18 History warfarin 7.5 mg PO DIRECTED 09/09/18 09/09/18 History Patient History Medical History Chronic back pain (Chronic) History of pulmonary embolism (Chronic) History of DVT (deep vein thrombosis) (Chronic) Dyslipidemia (Chronic) Depression (Chronic) GERD (gastroesophageal reflux disease) (Chronic) Anxiety (Chronic) Asthma, mild persistent (Chronic) Hyperhomocysteinemia (Chronic) MTHFR mutation (Chronic) RITA (iron deficiency anemia) (Chronic) Anemia (Acute) Surgical History Status post insertion of inferior vena caval filter (Chronic) Status post hysterectomy (Chronic) H/O bilateral oophorectomy (Chronic) Family History Other Family history non-contributory Social History Preferred Language: Mongolian Grinding Supervisor Required: No Beliefs That Will Affect Care: None marital status: Current Living Situation: Spouse current occupational status: retired Other Information That Helps Us Care for You: No Feels Safe at Home: Yes Safety Concerns: Feels Safe At This Time Smoking Status: Unknown if ever smoked Hx Substance Use: No Physical Exam Constitutional: alert, awake Respiratory: normal respiratory effort, lungs clear to auscultation Cardiovascular: RRR, no murmur, no edema Gastrointestinal (Abdomen): normal bowel sounds, soft, nontender, no hepatosplenomegaly Results & Data Vital Signs (Past 12 Hours) Vital Signs Temp Pulse Pulse Resp BP BP Pulse Ox 09/10/18 06:57 36.9 C 85 19 90/46 L 96 09/10/18 04:51 37 C 102/53 L 09/10/18 03:40 36.0 C L 92 H 16 95/58 L 97 09/09/18 23:22 36.9 C 91 H 16 107/58 L 94 09/09/18 22:59 89
[2018-09-10] MEDS: SODIUM CHLORIDE 0.9% 1000ML 1,000 ML IV SCH (07:30)
[2018-09-10] MEDS ORDERED: DEXTROSE 50% 50 ML SYRINGE IV ONE (07:40)
--- NOTE | 2018-09-10 07:57 | Anesthesiology Consultation ---
Date of Service September 10, 2018 Assessment & Plan (1) Encounter for pre-operative examination: History Surgery Operation Date: 09/10/18 08:00 Proposed Procedures p EGD Hemostasis - Irphan E Joanawalphillip Height/Weight Height: 5 ft 1 in Weight: 84.4 kg Allergies Allergy/AdvReac Type Severity Reaction Status Date / Time erythromycin base Allergy Intermediate "VIOLENTLY Verified 06/29/15 16:28 ILL" NSAIDS (Non-Steroidal Allergy Intermediate BLEEDING Unverified 06/29/15 16:28 Anti-Inflamma cat dander AdvReac Intermediate nasal s/s Verified 06/29/15 16:28 pollen extracts AdvReac Intermediate "seasonal" Verified 06/29/15 16:28 - nasal s/s Medications Home Medications Medication Instructions Recorded Confirmed Last Taken buspirone 10 mg PO BID 09/09/18 09/09/18 Unknown calcium citrate-vitamin D3 1 tab PO DAILY 09/09/18 09/09/18 Unknown [Calcium Citrate + D] cetirizine [Zyrtec] 5 mg PO QAM 09/09/18 09/09/18 Unknown cholecalciferol (vitamin D3) 1,000 unit PO DAILY 09/09/18 09/09/18 Unknown [Vitamin D3] cyanocobalamin (vitamin B-12) 1,000 mcg PO DAILY 09/09/18 09/09/18 Unknown [Vitamin B-12] duloxetine 30 mg PO QAM 09/09/18 09/09/18 Unknown duloxetine 60 mg PO QAM 09/09/18 09/09/18 Unknown ferrous sulfate 325 mg PO BID 09/09/18 09/09/18 Unknown folic acid 400 mcg PO DAILY 09/09/18 09/09/18 Unknown gabapentin 300 mg PO HS 09/09/18 09/09/18 Unknown guaifenesin 400 mg PO HS 09/09/18 09/09/18 Unknown lorazepam 0.25 mg PO TID 09/09/18 09/09/18 Unknown lorazepam 0.5 mg PO HS 09/09/18 09/09/18 Unknown metoprolol succinate 25 mg PO QAM 09/09/18 09/09/18 Unknown multivitamin 1 tab PO QAM 09/09/18 09/09/18 Unknown omega 1-qnj-jka-fish oil [Fish Oil] 1 cap PO QPM 09/09/18 09/09/18 Unknown oxybutynin chloride 15 mg PO DAILY 09/09/18 09/09/18 Unknown pantoprazole 20 mg PO BID 09/09/18 09/09/18 Unknown pyridoxine (vitamin B6) [Vitamin 100 mg PO QPM 09/09/18 09/09/18 Unknown B-6] simvastatin 10 mg PO HS 09/09/18 09/09/18 Unknown trazodone 50 mg PO HS 09/09/18 09/09/18 Unknown warfarin 7.5 mg PO DIRECTED 09/09/18 09/09/18 09/07/18 Active Medications Generic Name Dose Route Start Last Admin Trade Name Freq PRN Reason Stop Dose Admin Buspirone HCl 10 mg 09/09/18 21:00 09/09/18 22:03 Buspar PO 10/09/18 20:59 10 mg BID MOHAMUD Administration Sodium Chloride 1,000 mls @ 125 mls/hr 09/09/18 15:00 09/10/18 07:44 Nss 1000ml IV 10/09/18 14:59 0 mls/hr .Q8H MOHAMUD Infusion Ranitidine HCl 50 mg/ Dextrose 102 mls @ 200 mls/hr 09/09/18 20:00 09/10/18 04:37 IV 10/09/18 19:59 Infused Q8H MOHAMUD Infusion Ioversol 94 ml 09/09/18 16:01 09/09/18 16:01 Optiray 320 100ml IV 09/13/18 16:00 94 ml ONCE PRN Administration Interaction Checking Lorazepam 0.25 mg 09/09/18 17:00 09/09/18 18:24 Ativan PO 10/09/18 16:59 0.25 mg TIDM MOHAMUD Administration Lorazepam 0.5 mg 09/09/18 21:00 09/09/18 22:03 Ativan PO 10/09/18 20:59 0.5 mg HS MOHAMUD Administration Ondansetron HCl 4 mg 09/09/18 21:32 09/09/18 21:45 Zofran IV 10/09/18 21:31 4 mg Q6H PRN Administration Nausea Trazodone HCl 50 mg 09/09/18 21:00 09/09/18 22:03 Desyrel PO 10/09/18 20:59 50 mg HS MOHAMUD Administration Past Medical History Medical History Chronic back pain (Chronic) History of pulmonary embolism (Chronic) History of DVT (deep vein thrombosis) (Chronic) Dyslipidemia (Chronic) Depression (Chronic) GERD (gastroesophageal reflux disease) (Chronic) Anxiety (Chronic) Asthma, mild persistent (Chronic) Hyperhomocysteinemia (Chronic) MTHFR mutation (Chronic) RITA (iron deficiency anemia) (Chronic) Anemia (Acute) Past Family History Family History Other Family history non-contributory Past Surgical History Surgical History Status post insertion of inferior vena caval filter (Chronic) Status post hysterectomy (Chronic) H/O bilateral oophorectomy (Chronic) Social History Smoking Status: Unknown if ever smoked alcohol intake frequency: holidays/special occasions only Hx Substance Use: No Physical Exam Vital Signs Last Vital Signs Temp 36.9 C 09/10/18 06:57 Pulse 85 09/10/18 06:57 Resp 19 09/10/18 06:57 BP 90/46 L 09/10/18 06:57 Pulse Ox 96 09/10/18 06:57 Testing Electrocardiogram Date: 09/09/18 Normal sinus rhythm Cannot rule out Inferior infarct , age undetermined Nonspecific T wave abnormality Abnormal ECG When compared with ECG of 09-SEP-2016 17:11, Nonspecific T wave abnormality, worse in Anterior leads Confirmed by YVES TOLEDO ([id number]) on 09/09/2018 1:31:48 PM Laboratory Results 09/10/18 05:19 09/10/18 05:19 Blood Type O Positive 09/09/18 11:14 Antibody Screen NEGATIVE 09/09/18 11:14 PT 13.1 Seconds (9.0-12.0) H 09/10/18 05:19 INR 1.3 (0.9-1.1) H 09/10/18 05:19 APTT 28.5 Seconds (21.0-31.0) 09/09/18 11:15
[2018-09-10] MEDS ORDERED: ONDANSETRON INJ 2 MG/ML 2 ML VIAL IV PRN (08:58)
[2018-09-10] MEDS ORDERED: ATROPINE SULFATE 0.1 MG/ML 10ML SYR IV PRN (08:58)
[2018-09-10] MEDS ORDERED: ePHEDrine sulfate 50 MG/ML AMP IV PRN (08:58)
[2018-09-10] MEDS ORDERED: fentaNYL citrate 100 MCG/2 ML VIAL IV PRN (08:58)
--- NOTE | 2018-09-10 09:09 | GI REPORT ---
Patient Name: Carli Rich Procedure Date: 09/10/2018 7:40 AM Date of : 1945 Admit Type: Inpatient Age: 72 Gender: Female Attending MD: Becky Rodríguez MD Procedure: Upper GI endoscopy/ enteroscopy Providers: Becky Rodríguez MD Referring MD: Ced Sheppard M.d. Indications: Melena - Pt presented with h/o hypercoag state, h/o DVT/PE on coumadin + fish oil; also prior h/o large HH with Mac's erosions, now with episode of melena last , persistent nausea, retching and inability to tolerate PO since . Denies abd pain; + pre-syncope and marked dyspnea/fatigue prior to admission.On admit, hgb 10 from 12 as an outpt; she aslo had increased BUn to 51, and had a systolic of around 100 on admission. Her hgb fell to 7 overnight. Of note, pt with a long h/o obscure overt GIB - her w/u has included cscopy x 2, last in 2011; VCE x 2, last in 2015; EGD/enteroscopy x 4, last in 2015. Her last episode of bleeding was in 2018 - she had a amy hgb of 8 throughout most of last spring and summer 2017, and was treated as an outpt with intermittent IV infusions of iron. Medicines: See the Anesthesia note for documentation of the administered medications Complications: No immediate complications. Estimated Blood Loss: Estimated blood loss: none. Procedure: Pre-Anesthesia Assessment: - ASA Grade Assessment: IV - A patient with severe systemic disease that is a constant threat to life. After obtaining informed consent, the endoscope was passed under direct vision. Throughout the procedure, the patient's blood pressure, pulse, and oxygen saturations were monitored continuously. The Endoscope was introduced through the mouth, and advanced to the proximal jejunum. The upper GI endoscopy and push enteroscopy were accomplished without difficulty. The patient tolerated the procedure well. Findings: The examined esophagus was normal. There was a large hiatal hernia. There were several shallow Mac's erosions that are not likely the cause of this pt's bleeding. There was trace bilious fluid in the stomach. The stomach mucosa was otherwise normal. There was a small lymphangiocele in the jejunum. Otherwise, the duodenum and jejunum were normal, with bilious fluid throughout the examined small intestine. A clip was placed to romie the distal extent of the enteroscope. Impression: - No source of GI bleeding found. 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 Recommendation: - Discharge patient to PCU. If she has gross evidence of continued bleeding (ie, further fall in hgb or melena), would request repeat bleeding scan. Repeat cscopy seems low yield; would defer further endoscopic w/u unless bleeding scan is positive. Can advance diet to full liquids today. Rec d/c fish oil; please hold coumadin for an additional 48 hours, and resume if no evidence of gross bleeding during this time, can use bridging UFH at this time if hospitalist service deems necessary. Please give venofer 200 mg IV x 1 prior to d/c. Becky Rodríguez M.D. Becky Rodríguez MD 09/10/2018 9:09:29 AM This report has been signed electronically. Note Initiated On: 09/10/2018 7:40 AM Number of Addenda: 0 I attest to the content of the Intraoperative Record and orders documented therein, exceptions below {[id number]}
--- NOTE | 2018-09-10 09:39 | Anesthesiology Progress Note ---
Date of Service September 10, 2018 Anesthesia Post Procedure Vital Signs Vital Signs: Temp Pulse Pulse Pulse Resp BP BP 09/10/18 09:25 36.8 C 79 16 09/10/18 09:15 82 16 09/10/18 09:05 84 16 09/10/18 08:55 81 16 09/10/18 08:49 36.9 C 83 16 09/10/18 06:57 36.9 C 85 19 90/46 L 09/10/18 04:51 37 C 102/53 L 09/10/18 03:40 36.0 C L 92 H 16 09/09/18 23:22 36.9 C 91 H 16 09/09/18 22:59 89 09/09/18 19:15 36.7 C 96 H 20 09/09/18 16:00 36.9 C 98 H 18 118/70 09/09/18 15:30 104 H 17 123/78 09/09/18 13:47 101 H 18 115/69 09/09/18 11:33 102 H 18 99/67 L 09/09/18 10:10 36.6 C 118 H 16 99/71 L BP Pulse Ox 09/10/18 09:25 112/60 99 09/10/18 09:15 128/61 100 09/10/18 09:05 115/60 100 09/10/18 08:55 125/60 100 09/10/18 08:49 121/72 100 09/10/18 06:57 96 09/10/18 04:51 09/10/18 03:40 95/58 L 97 09/09/18 23:22 107/58 L 94 09/09/18 22:59 09/09/18 19:15 115/74 100 09/09/18 16:00 99 09/09/18 15:30 96 09/09/18 13:47 99 09/09/18 11:33 97 09/09/18 10:10 97 Notes Mental Status: alert / awake / arousable and participated in evaluation Patient Amnestic to Procedure: Yes Nausea / Vomiting: adequately controlled Pain: adequately controlled Airway Patency, RR, SpO2: stable & adequate BP & HR: stable & adequate Hydration State: stable & adequate Anesthetic Complications: no major complications apparent and Pt Satisfied with anesthetic care
[2018-09-10] MEDS ORDERED: PNEUMOCOCCAL ADMINISTRATION CHARGE ONE (09:45)
[2018-09-10] MEDS ORDERED: PNEUMOCOCCAL POLYSACCHARIDES 25 MCG/0.5 ML VIAL/SYR IM ONE (09:45)
[2018-09-10] MEDS: LORazepam 0.5 MG TAB PO SCH ×4 (10:08→21:47)
[2018-09-10] MEDS: DULOXETINE HCL 60 MG CAP PO SCH (10:09)
[2018-09-10] MEDS: OXYBUTYNIN CHLORIDE XL 5 MG TABCR PO SCH (10:09)
[2018-09-10] MEDS: PANTOprazole 40 MG TAB PO SCH (10:10)
--- NOTE | 2018-09-10 12:13 | Hospitalist Progress Note ---
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 Symptoms also associated with left sided abdomen pain, and dark stools, and weakness. -admission CT abdomen 1. Mildly dilated fluid-filled mid abdominal small bowel loops. Given the lack of a high-grade transition zone, as well as the lack of gastric duodenal or proximal small bowel dilatation, the findings are likely secondary to a focal ileus. Clinical follow-up is advocated 2. Normal appendix. No evidence of acute diverticulitis. 3. No evidence of free air 4. Large hiatal hernia with an intrathoracic stomach Since her symptoms on 09/07/18, patient stopped taking her coumadin but INR on presentation still therapeutic 2.2. vitamin K was given to reverse INR as per gastroeneterology service -Hgb on admission is 10 in comparison to outpatient 07/21/18 lab of 13.6 -overnight patient's hemoglobin dropped to 7 by AM of 09/10/18. She denied blood per rectum. Patient was taken to the operating for upper endoscopy but no acute source of bleeding was identified. Patient received 1 unit of PRBC in the operating room. Patient returns to telemetry phillips with 2nd unit of PRBC running -will trend Hgb -will give IV fluids as needed. 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 and gastroenterology recommends nuclear bleeding scan if further drop in hemoglobin or gross bleeding Iron deficiency anemia -hold off oral iron for now -gastroenterology service recommends IV venofer 200 mg at some point prior to end of this hospitalization History of thromboembolism -history of bilateral pulmonary embolism and DVT in 2007 with IVC filter and hypercoagulable workup in the past positive for Compound Heterozygous MTHFR Mutation (positive for C677T and [id number]) -history of coumadin use and INR has been reversed on this admission -will hold off systemic anticoagulation at this time given concern for active GI bleed, and because history of thromboembolism is distant past, and re-evaluate when hemoglobin is stable Patient was placed on low dose metoprolol by outpatient cardiology service for outpatient complaints of dyspnea on exertion -resting echocardiogram in 07/2018 with LV ejection fraction > 70 % -hold off metoprolol for now Chronic Kidney Disease stage III -monitor renal function Depression/Anxiety -continue home medications DVT ppx: SCDs for now Full Code [phone] daughter [phone] Subjective overnight patient's hemoglobin dropped to 7. She denied blood per rectum. Patient was taken to the operating for endoscopy but no acute source of bleeding was identified. Patient received 1 unit of PRBC in the operating room. Patient returns to telemetry phillips with 2nd unit of PRBC running. Patient eating clear liquid diet. denies abdomen pain. no vomiting. no chest pain. no shortness of breath. no dizziness. no lightheadedness Physical Exam Constitutional: WD/WN, vitals as above Eyes: PERRL, conjunctivae normal, anicteric sclerae EOM intact bilaterally ENMT: external ear and nose normal, oropharynx normal Neck: trachea midline, no thyromegaly Respiratory: normal respiratory effort, lungs clear to auscultation Cardiovascular: RRR, no murmur, no edema Gastrointestinal (Abdomen): Inspection/Auscultation: abdomen normal to inspection and normal bowel sounds Musculoskeletal: Head/Neck/Chest: normocephalic and head atraumatic Neurologic: PERRL, EOMI, accommodation nl, no face palsy, no dysarthria Psychiatric: A+Ox3, euthymic affect Results & Data Vital Signs (Past 12 Hours) Vital Signs Temp Pulse Pulse Pulse Resp BP BP 09/10/18 11:28 36.6 C 79 21 105/62 09/10/18 10:58 36.8 C 87 16 101/54 L 09/10/18 10:43 37 C 85 16 111/70 09/10/18 10:24 37 C 81 14 119/65 09/10/18 10:15 37 C 84 16 119/65 09/10/18 09:56 37 C 76 16 93/54 L 09/10/18 09:25 36.8 C 79 16 09/10/18 09:15 82 16 09/10/18 09:05 84 16 09/10/18 08:55 81 16 09/10/18 08:49 36.9 C 83 16 09/10/18 06:57 36.9 C 85 19 90/46 L 09/10/18 04:51 37 C 102/53 L 09/10/18 03:40 36.0 C L 92 H 16 BP Pulse Ox 09/10/18 11:28 96 09/10/18 10:58 95 09/10/18 10:43 98 09/10/18 10:24 100 09/10/18 10:15 99 09/10/18 09:56 99 09/10/18 09:25 112/60 99 09/10/18 09:15 128/61 100 09/10/18 09:05 115/60 100 09/10/18 08:55 125/60 100 09/10/18 08:49 121/72 100 09/10/18 06:57 96 09/10/18 04:51 09/10/18 03:40 95/58 L 97 (1) GI bleed GI bleed type/associated pathology: unspecified gastrointestinal hemorrhage type Qualified Code(s): K92.2 - Gastrointestinal hemorrhage, unspecified
[2018-09-10 14:33] LABS: Basophils # (auto) 0.01 K/uL (0-0.2); Basophils % (auto) 0.1 %; Eosinophils # (auto) 0.01 K/uL (0-0.5); Eosinophils % (auto) 0.1 %; Hematocrit (blood only) 30.8 % (37-47); Hemoglobin 10.3 g/dL (12.0-16.0); Immature Granulocytes # (auto) 0.14 K/uL (0.00-0.02); Immature Granulocytes % (auto) 1.7 %; Lymphocytes # (auto) 0.68 K/uL (1.2-3.4); Lymphocytes % (auto) 8.4 %; Mean Corpuscular Hgb Conc 33.4 g/dL (32-36); Mean Corpuscular Volume 87.7 fL (80-100); Mean Platelet Volume 9.8 fL (7.4-10.4); Monocytes # (auto) 0.09 K/uL (0.11-0.59); Monocytes % (auto) 1.1 %; Neutrophils # (auto) 7.16 K/uL (1.4-6.5); Neutrophils % (auto) 88.6 %; Nucleated RBC # (auto) 0.08 K/uL (0-0); Platelet Count 217 K/uL (130-400); RDW Coefficient of Variation 14.8 % (11.5-14.5); RDW Standard Deviation 46.6 fL (36.4-46.3); Red Blood Count 3.51 M/uL (4.2-5.4); White Blood Count 8.09 K/uL (4.8-10.8)
[2018-09-10] MEDS ORDERED: ACETAMINOPHEN 325 MG TAB PO PRN ×2 (18:19→18:21)
[2018-09-10] MEDS: TRAZODONE HCL 50 MG TAB PO SCH (21:48)
[2018-09-11 05:50] LABS: Hematocrit (blood only) 27.3 % (37-47); Hemoglobin 9.1 g/dL (12.0-16.0); Immature Granulocytes # (auto) 0.03 K/uL (0.00-0.02); Immature Granulocytes % (auto) 0.5 %; Lymphocytes # (auto) 0.91 K/uL (1.2-3.4); Lymphocytes % (auto) 13.8 %; Mean Corpuscular Hgb Conc 33.3 g/dL (32-36); Mean Corpuscular Volume 86.7 fL (80-100); Mean Platelet Volume 9.7 fL (7.4-10.4); Monocytes # (auto) 0.42 K/uL (0.11-0.59); Monocytes % (auto) 6.4 %; Neutrophils # (auto) 5.25 K/uL (1.4-6.5); Neutrophils % (auto) 79.3 %; Nucleated RBC # (auto) 0.08 K/uL (0-0); Nucleated RBC % (auto) 1.2 %; Platelet Count 220 K/uL (130-400); RDW Standard Deviation 46.2 fL (36.4-46.3); Red Blood Count 3.15 M/uL (4.2-5.4); White Blood Count 6.61 K/uL (4.8-10.8)
[2018-09-11] MEDS: LORazepam 0.5 MG TAB PO SCH ×4 (08:44→21:37)
[2018-09-11] MEDS: OXYBUTYNIN CHLORIDE XL 5 MG TABCR PO SCH (08:47)
[2018-09-11] MEDS: DULOXETINE HCL 60 MG CAP PO SCH (08:47)
[2018-09-11] MEDS: PANTOprazole 40 MG TAB PO SCH (08:47)
--- NOTE | 2018-09-11 08:48 | Gastroenterology Progress Note ---
Date of Service September 11, 2018 Assessment & Plan (1) GI bleed: 72 year old female who presents w/ obscure GIB - s/p EGD w/o source of blood loss identified - No source of GI bleeding found, likely small bowel AVM's as source - Trend H&H - Monitor for s/s of GI blood loss - Slight drop in H&H this AM without evidence of GIB - If she has further evidence of continued bleeding (further drop in hgb or melena) will need bleeding scan - No plan for repeat C-scopy - Venofer 200 mg IV x 1 prior to d/c - PO PPI daily Thank you for allowing us to participate in the care of this patient. Please call with any acute changes, questions or concerns. Please see addendum below with additional recommendation from my supervising physician. Supervising Physician Co-Signing Physician Notes I have seen and examined the patient and discussed the management with ASHLY Dupree. Patient receiving an IV blood infusion while examining her. Pt reports no bm since egd yesterday PE significant for alert female in nad, CV- rrr no mrg, Pulm- ctab, Abd - soft nt nd +bs, Skin - no rashes Labs sig for 1 gram drop in hgb, no bun rise Remains off of coumadin. Would continue with IV transfusion, monitor blood counts, she follows with Dr. Russ regularly and seems no further plan except for bleeding scan if evidence of GI bleeding. Subjective Pt was seen and evaluated, chart reviewed. History of obscure GIB previously worked up with EGD/Colon/VCE who presents over the weekend w/ weakness, dark stools and anemia. s/p EGD w/ Dr. Rodríguez w/ small erin erosin not thought to be source of GI bleed. This AM she is feeling well. No abd pain. No nausea, vomiting. No further BM - denies black/bloody stools. No fever, chills, CP, SOB. Review of Systems Constitutional: no fever, no chills and no fatigue Respiratory: no cough, no dyspnea and no wheezing Cardiovascular: no chest pain, no radiating jaw, neck or arm pain, no dyspnea on exertion and no palpitations Gastrointestinal: no abdominal pain, no early satiety, no heartburn, no nausea, no vomiting, no coffee ground emesis, no hematemesis, no dysphagia, no cramping, no change in stools, no diarrhea/loose stools, no blood in stools and no melena Physical Exam Constitutional: well developed; + not well nourished and no acute distress Respiratory: normal respiratory effort, lungs clear to auscultation Cardiovascular: RRR, no murmur, no edema Gastrointestinal (Abdomen): normal bowel sounds, soft, nontender, no hepatosplenomegaly Skin: no rashes, warm and dry Results & Data Vital Signs (Past 12 Hours) Vital Signs Temp Pulse Resp BP BP Pulse Ox 09/11/18 07:00 36.9 C 85 16 128/79 96 09/11/18 03:32 36.9 C 84 18 113/69 96 09/10/18 23:00 36.9 C 81 15 117/62 92 Laboratory Results 09/11/18 09/10/18 09/10/18 Range/Units 05:12 14:08 05:19 WBC 6.61 8.09 (4.8-10.8) K/uL RBC 3.15 L 3.51 L (4.2-5.4) M/uL Hgb 9.1 L 10.3 L D (12.0-16.0) g/dL Hct 27.3 L 30.8 L (37-47) % MCV 86.7 87.7 (80-100) fL MCH 28.9 29.3 (25-34) pg MCHC 33.3 33.4 (32-36) g/dL RDW Std Deviation 46.2 46.6 H (36.4-46.3) fL RDW Coeff of Brandon 15.0 H 14.8 H (11.5-14.5) % Plt Count 220 217 (130-400) K/uL MPV 9.7 9.8 (7.4-10.4) fL Immature Gran % (Auto) 0.5 1.7 % Neut % (Auto) 79.3 88.6 % Lymph % (Auto) 13.8 8.4 % [place] % (Auto) 6.4 1.1 % Eos % (Auto) 0.0 0.1 % Baso % (Auto) 0.0 0.1 % Immature Gran # (Auto) 0.03 H 0.14 H (0.00-0.02) K/uL Neut # (Auto) 5.25 7.16 H (1.4-6.5) K/uL Lymph # (Auto) 0.91 L 0.68 L (1.2-3.4) K/uL [place] # (Auto) 0.42 0.09 L (0.11-0.59) K/uL Eos # (Auto) 0.00 0.01 (0-0.5) K/uL Baso # (Auto) 0.00 0.01 (0-0.2) K/uL Absolute Nucleated RBC 0.08 H 0.08 H (0-0) K/uL Nucleated RBC % (auto) 1.2 1.0 % Hepatitis C Ab Screen Neg (Neg) Blood Type Antibody Screen Crossmatch 09/09/18 Range/Units 11:14 WBC (4.8-10.8) K/uL RBC (4.2-5.4) M/uL Hgb (12.0-16.0) g/dL Hct (37-47) % MCV (80-100) fL MCH (25-34) pg MCHC (32-36) g/dL RDW Std Deviation (36.4-46.3) fL RDW Coeff of Brandon (11.5-14.5) % Plt Count (130-400) K/uL MPV (7.4-10.4) fL Immature Gran % (Auto) % Neut % (Auto) % Lymph % (Auto) % [place] % (Auto) % Eos % (Auto) % Baso % (Auto) % Immature Gran # (Auto) (0.00-0.02) K/uL Neut # (Auto) (1.4-6.5) K/uL Lymph # (Auto) (1.2-3.4) K/uL [place] # (Auto) (0.11-0.59) K/uL Eos # (Auto) (0-0.5) K/uL Baso # (Auto) (0-0.2) K/uL Absolute Nucleated RBC (0-0) K/uL Nucleated RBC % (auto) % Hepatitis C Ab Screen (Neg) Blood Type O Positive Antibody Screen NEGATIVE Crossmatch See Detail (1) GI bleed GI bleed type/associated pathology: unspecified gastrointestinal hemorrhage type Qualified Code(s): K92.2 - Gastrointestinal hemorrhage, unspecified
--- NOTE | 2018-09-11 09:21 | Hospitalist Progress Note ---
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 Symptoms also associated with left sided abdomen pain, and dark stools, and weakness. -admission CT abdomen 1. Mildly dilated fluid-filled mid abdominal small bowel loops. Given the lack of a high-grade transition zone, as well as the lack of gastric duodenal or proximal small bowel dilatation, the findings are likely secondary to a focal ileus. Clinical follow-up is advocated 2. Normal appendix. No evidence of acute diverticulitis. 3. No evidence of free air 4. Large hiatal hernia with an intrathoracic stomach Since her symptoms on 09/07/18, patient stopped taking her coumadin but INR on presentation still therapeutic 2.2. vitamin K was given to reverse INR as per gastroeneterology service -Hgb on admission is 10 in comparison to outpatient 07/21/18 lab of 13.6 -overnight patient's hemoglobin dropped to 7 by AM of 09/10/18. She denied blood per rectum. Patient was taken to the operating for upper endoscopy but no acute source of bleeding was identified. Patient received 1 unit of PRBC in the operating room. Patient returns to telemetry phillips with 2nd unit of PRBC running -will trend Hgb -will give IV fluids as needed. 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 Hgb trended slightly down from Hgb 10 to 9. Discussed with patient about giving IV venofer. will continue to trend Hgb. Patient agrees. Patient also declines to be bridged with heparin to therapeutic INR when Hgb stable. She prefers outpatient coumadin dosing and INR follow ups with anticoagulation clinic. Patient agrees to get ultrasound of the lower extremities to rule out DVTs and then re-discuss anticoagulation plans. Iron deficiency anemia -hold off oral iron for now -give IV venofer 200 mg on 09/11/18 History of thromboembolism -history of bilateral pulmonary embolism and DVT in 2007 with IVC filter and hypercoagulable workup in the past positive for Compound Heterozygous MTHFR Mutation (positive for C677T and [id number]) -history of coumadin use and INR has been reversed on this admission -Patient also declines to be bridged with heparin to therapeutic INR when Hgb stable. She prefers outpatient coumadin dosing and INR follow ups with anticoagulation clinic. Patient agrees to get ultrasound of the lower extremities to rule out DVTs and then re-discuss anticoagulation plans. Patient was placed on low dose metoprolol by outpatient cardiology service for outpatient complaints of dyspnea on exertion -resting echocardiogram in 07/2018 with LV ejection fraction > 70 % -hold off metoprolol for now Chronic Kidney Disease stage III -monitor renal function Depression/Anxiety -continue home medications DVT ppx: get ultrasound of lower extremities, if no DVTs then can do SCDs, encourage ambulation (PT/OT evaluations) Full Code [phone] daughter [phone] Subjective No bowel movement. Hgb trended slightly down from Hgb 10 to 9. Discussed with enzo bey about giving IV venofer. will continue to trend Hgb. Patient agrees. Patient also declines to be bridged with heparin to therapeutic INR when Hgb stable. She prefers outpatient coumadin dosing and INR follow ups with anticoagulation clinic. Patient agrees to get ultrasound of the lower extremities to rule out DVTs and then re-discuss anticoagulation plans. no abdomen pain. no chets pain. no shortness of breath. no vomiting. no lightheadedness. no dizziness Physical Exam Constitutional: WD/WN, vitals as above Eyes: PERRL, conjunctivae normal, anicteric sclerae EOM intact bilaterally ENMT: external ear and nose normal, oropharynx normal Neck: trachea midline, no thyromegaly Respiratory: normal respiratory effort, lungs clear to auscultation Cardiovascular: RRR, no murmur, no edema Gastrointestinal (Abdomen): Inspection/Auscultation: abdomen normal to inspection and normal bowel sounds Musculoskeletal: Head/Neck/Chest: normocephalic and head atraumatic Neurologic: PERRL, EOMI, accommodation nl, no face palsy, no dysarthria Psychiatric: A+Ox3, euthymic affect Results & Data Vital Signs (Past 12 Hours) Vital Signs Temp Pulse Resp BP BP Pulse Ox 09/11/18 07:00 36.9 C 85 16 128/79 96 09/11/18 03:32 36.9 C 84 18 113/69 96 09/10/18 23:00 36.9 C 81 15 117/62 92 (1) GI bleed GI bleed type/associated pathology: unspecified gastrointestinal hemorrhage type Qualified Code(s): K92.2 - Gastrointestinal hemorrhage, unspecified
[2018-09-11] MEDS ORDERED: IRON SUCROSE 200 MG in 0.9 % SODIUM CHLORIDE 100 ML IV SCH (09:30)
--- NOTE | 2018-09-11 12:36 | Ultrasound Report ---
US venous doppler LE BI HISTORY: Pain. Edema. history of blood clot in past, rule out leg DVTs COMPARISON STUDY: None. FINDINGS: There is normal compressibility, flow, and augmentation within the bilateral lower extremit y deep venous systems. IMPRESSION: No DVT within the right or left lower extremity. The above report was generated using voice recognition software. It may contain grammatical, syntax or spelling errors. Electronically signed by: Ezra Dc M.D. 09/11/2018 12:34 PM
[2018-09-11 19:35] LABS: Basophils # (auto) 0.02 K/uL (0-0.2); Basophils % (auto) 0.3 %; Eosinophils # (auto) 0.02 K/uL (0-0.5); Eosinophils % (auto) 0.3 %; Hematocrit (blood only) 29.1 % (37-47); Hemoglobin 9.5 g/dL (12.0-16.0); Immature Granulocytes # (auto) 0.06 K/uL (0.00-0.02); Immature Granulocytes % (auto) 0.9 %; Lymphocytes # (auto) 1.55 K/uL (1.2-3.4); Lymphocytes % (auto) 22.5 %; Mean Corpuscular Volume 89.3 fL (80-100); Mean Platelet Volume 9.6 fL (7.4-10.4); Monocytes # (auto) 0.73 K/uL (0.11-0.59); Monocytes % (auto) 10.6 %; Neutrophils % (auto) 65.4 %; Nucleated RBC % (auto) 1.5 %; Platelet Count 214 K/uL (130-400); RDW Standard Deviation 47.9 fL (36.4-46.3); Red Blood Count 3.26 M/uL (4.2-5.4); White Blood Count 6.88 K/uL (4.8-10.8)
[2018-09-11 20:37] LABS: Mean Corpuscular Hgb Conc 32.6 g/dL (32-36)
[2018-09-11] MEDS: TRAZODONE HCL 50 MG TAB PO SCH (21:37)
[2018-09-12 06:02] LABS: Basophils # (auto) 0.02 K/uL (0-0.2); Basophils % (auto) 0.5 %; Eosinophils # (auto) 0.06 K/uL (0-0.5); Eosinophils % (auto) 1.4 %; Hematocrit (blood only) 30.3 % (37-47); Hemoglobin 9.6 g/dL (12.0-16.0); Immature Granulocytes # (auto) 0.04 K/uL (0.00-0.02); Immature Granulocytes % (auto) 0.9 %; Lymphocytes # (auto) 1.47 K/uL (1.2-3.4); Lymphocytes % (auto) 33.4 %; Mean Corpuscular Hgb Conc 31.7 g/dL (32-36); Mean Corpuscular Volume 90.7 fL (80-100); Monocytes # (auto) 0.33 K/uL (0.11-0.59); Monocytes % (auto) 7.5 %; Neutrophils # (auto) 2.48 K/uL (1.4-6.5); Neutrophils % (auto) 56.3 %; Nucleated RBC # (auto) 0.06 K/uL (0-0); Nucleated RBC % (auto) 1.3 %; Platelet Count 213 K/uL (130-400); RDW Coefficient of Variation 15.4 % (11.5-14.5); Red Blood Count 3.34 M/uL (4.2-5.4)
[2018-09-12 07:10] VITALS: BP 105/44; TEMP 98.4; O2SAT 98
--- NOTE | 2018-09-12 09:30 | Gastroenterology Progress Note ---
Date of Service September 12, 2018 Assessment & Plan (1) GI bleed: 72 year old female who presents w/ obscure GIB - s/p EGD w/o source of blood loss identified - No source of GI bleeding found, likely small bowel AVM's as source - HGB stable - No further episodes of GI blood loss - PO PPI daily GI to sign off. Thank you for allowing us to participate in the care of this patient. Please call with any acute changes, questions or concerns. Please see addendum below with additional recommendation from my supervising physician. Supervising Physician Co-Signing Physician Notes I have seen and examined the patient and discussed the management with ASHLY Dupree. No bowel movement since scope. PE significant for female in nad, heent- perrla, CV- rrr no mrg, pulm - ctab, abd - soft nt nd +bs Labs stable Received IV Venofer Agree with further plan of care as per Kathy's plan. GI to sign off. Subjective Pt was seen and evaluated, chart reviewed. History of obscure GIB previously worked up with EGD/Colon/VCE who presents over the weekend w/ weakness, dark stools and anemia. s/p EGD w/ Dr. Rodríguez w/ small erin erosin not thought to be source of GI bleed. This AM she is feeling well. No abd pain. No nausea, vomiting. Was kept overnight to trend H&H. She did recieve IV iron yesterday. No further BM - denies black/bloody stools. No fever, chills, CP, SOB. Feels well wants to go home. Review of Systems Constitutional: no fever, no chills, no body aches and no fatigue Respiratory: no cough, no dyspnea, no pain on inspiration and no wheezing Cardiovascular: no chest pain, no radiating jaw, neck or arm pain, no dyspnea on exertion and no palpitations Gastrointestinal: no abdominal pain, no early satiety, no vomiting, no blood in stools and no melena Physical Exam Constitutional: well developed; + not well nourished and no acute distress Respiratory: normal respiratory effort, lungs clear to auscultation Cardiovascular: RRR, no murmur, no edema Gastrointestinal (Abdomen): normal bowel sounds, soft, nontender, no hepatosplenomegaly Skin: no rashes, warm and dry Results & Data Vital Signs (Past 12 Hours) Vital Signs Temp Pulse Pulse Resp BP BP Pulse Ox 09/12/18 07:09 36.9 C 70 16 105/44 L 98 09/12/18 02:57 36.6 C 65 16 133/67 97 09/11/18 23:20 69 09/11/18 22:51 37.1 C 85 19 108/48 L 93 Laboratory Results 09/12/18 09/11/18 Range/Units 05:20 19:25 WBC 4.40 L 6.88 (4.8-10.8) K/uL RBC 3.34 L 3.26 L (4.2-5.4) M/uL Hgb 9.6 L 9.5 L (12.0-16.0) g/dL Hct 30.3 L 29.1 L (37-47) % MCV 90.7 89.3 (80-100) fL MCH 28.7 29.1 (25-34) pg MCHC 31.7 L 32.6 (32-36) g/dL RDW Std Deviation 49.0 H 47.9 H (36.4-46.3) fL RDW Coeff of [place] 15.4 H 15.0 H (11.5-14.5) % Plt Count 213 214 (130-400) K/uL MPV 10.0 9.6 (7.4-10.4) fL Immature Gran % (Auto) 0.9 0.9 % Neut % (Auto) 56.3 65.4 % Lymph % (Auto) 33.4 22.5 % [place] % (Auto) 7.5 10.6 % Eos % (Auto) 1.4 0.3 % Baso % (Auto) 0.5 0.3 % Immature Gran # (Auto) 0.04 H 0.06 H (0.00-0.02) K/uL Neut # (Auto) 2.48 4.50 (1.4-6.5) K/uL Lymph # (Auto) 1.47 1.55 (1.2-3.4) K/uL [place] # (Auto) 0.33 0.73 H (0.11-0.59) K/uL Eos # (Auto) 0.06 0.02 (0-0.5) K/uL Baso # (Auto) 0.02 0.02 (0-0.2) K/uL Absolute Nucleated RBC 0.06 H 0.10 H (0-0) K/uL Nucleated RBC % (auto) 1.3 1.5 % (1) GI bleed GI bleed type/associated pathology: unspecified gastrointestinal hemorrhage type Qualified Code(s): K92.2 - Gastrointestinal hemorrhage, unspecified
[2018-09-12] MEDS: OXYBUTYNIN CHLORIDE XL 5 MG TABCR PO SCH (09:34)
[2018-09-12] MEDS: PANTOprazole 40 MG TAB PO SCH (09:34)
[2018-09-12] MEDS: LORazepam 0.5 MG TAB PO SCH (09:35)
[2018-09-12] MEDS: DULOXETINE HCL 60 MG CAP PO SCH (09:35)
--- NOTE | 2018-09-12 10:35 | Hospitalist Progress Note ---
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 Symptoms also associated with left sided abdomen pain, and dark stools, and weakness. -admission CT abdomen 1. Mildly dilated fluid-filled mid abdominal small bowel loops. Given the lack of a high-grade transition zone, as well as the lack of gastric duodenal or proximal small bowel dilatation, the findings are likely secondary to a focal ileus. Clinical follow-up is advocated 2. Normal appendix. No evidence of acute diverticulitis. 3. No evidence of free air 4. Large hiatal hernia with an intrathoracic stomach Since her symptoms on 09/07/18, patient stopped taking her coumadin but INR on presentation still therapeutic 2.2. vitamin K was given to reverse INR as per gastroeneterology service -Hgb on admission is 10 in comparison to outpatient 07/21/18 lab of 13.6 -overnight patient's hemoglobin dropped to 7 by AM of 09/10/18. She denied blood per rectum. 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; Gastroenterology service advised to stop fish oil -postop blood transfusion CBC was 10 on 09/10/18 and Hgb stable above 9; patient defers bridging with heparin drip to therapeutic coumadin levels, no DVTs found in the leg on this admission on 09/11/18, patient can resume home dose warfarin on discharge Patient has follow up appointment to primary care doctor to check CBC and INR 09/15/2018 11:00 AM Provider Jesica Hernandez MD Department Internal Medicine [facility] Iron deficiency anemia -given IV venofer 200 mg on 09/11/18 -can resume oral iron on discharge History of thromboembolism -history of bilateral pulmonary embolism and DVT in 2007 with IVC filter and hypercoagulable workup in the past positive for Compound Heterozygous MTHFR Mutation (positive for C677T and [id number]) -history of coumadin use and INR has been reversed on this admission -Patient also declined to be bridged with heparin to therapeutic INR when Hgb stable. She prefers outpatient coumadin dosing and INR follow ups with anticoagulation clinic - no DVTs of the legs currently on ultrasound of lower extremities on this admission Large hiatal hernia with an intrathoracic stomach (chronic hernia) -Patient aware of chronic hernia and should follow up with primary care doctor Patient was placed on low dose metoprolol by outpatient cardiology service for outpatient complaints of dyspnea on exertion -resting echocardiogram in 07/2018 with LV ejection fraction > 70 % -hold off metoprolol for now Patient had metoprolol held during hospital stay and should hold off metoprolol at this time Chronic Kidney Disease stage III -monitor renal function Depression/Anxiety -continue home medications Discharge Diagnosis Gastrointestinal bleed (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), Iron deficiency anemia, History of thromboembolism in the past (no DVTs of the legs currently), Chronic Kidney Disease stage III, on medications for Depression and Anxiety, Large hiatal hernia with an intrathoracic stomach (chronic hernia) Discharge to home Patient may take home dose coumadin Gastroenterology service advised to stop fish oil Patient had metoprolol held during hospital stay and should hold off metoprolol at this time Patient has follow up appointment to primary care doctor to check CBC and INR 09/15/2018 11:00 AM Provider Jesica Hernandez MD Department Internal Medicine [facility] Patient aware of chronic hernia and should follow up with primary care doctor Subjective Patient with stable blood count. denies bowel movement. no abdomen pain. no vomiting, no fever. no shortness of breath. no chest pain. no lightheadednes. no dizziness Physical Exam Constitutional: WD/WN, vitals as above Eyes: PERRL, conjunctivae normal, anicteric sclerae EOM intact bilaterally ENMT: external ear and nose normal, oropharynx normal Neck: trachea midline, no thyromegaly Respiratory: normal respiratory effort, lungs clear to auscultation Cardiovascular: RRR, no murmur, no edema Gastrointestinal (Abdomen): Inspection/Auscultation: abdomen normal to inspection and normal bowel sounds Musculoskeletal: Head/Neck/Chest: normocephalic and head atraumatic Neurologic: PERRL, EOMI, accommodation nl, no face palsy, no dysarthria Psychiatric: A+Ox3, euthymic affect Results & Data Vital Signs (Past 12 Hours) Vital Signs Temp Pulse Pulse Resp BP BP Pulse Ox 09/12/18 07:09 36.9 C 70 16 105/44 L 98 09/12/18 02:57 36.6 C 65 16 133/67 97 09/11/18 23:20 69 09/11/18 22:51 37.1 C 85 19 108/48 L 93 (1) GI bleed GI bleed type/associated pathology: unspecified gastrointestinal hemorrhage type Qualified Code(s): K92.2 - Gastrointestinal hemorrhage, unspecified
--- NOTE | 2018-09-12 10:44 | Discharge Summary ---
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 Symptoms also associated with left sided abdomen pain, and dark stools, and weakness. Since her symptoms she on , she stopped taking her coumadin but INR on presentation still therapeutic 2.2. Hgb on admission is 10 in comparison to outpatient 07/21/18 lab of 13.6 Patient denies fever, denies loss of consciousness, no dizziness, no chest pain, no shortness of breath, no problems with urination family history: son had GuillainBarr syndrome Admission Exam Per Admitting Provider Constitutional: WD/WN, vitals as above Eyes: PERRL, conjunctivae normal, anicteric sclerae EOM intact bilaterally ENMT: external ear and nose normal, oropharynx normal Neck: trachea midline, no thyromegaly Respiratory: normal respiratory effort, lungs clear to auscultation Cardiovascular: RRR, no murmur, no edema Gastrointestinal (Abdomen): Inspection/Auscultation: abdomen normal to inspection and normal bowel sounds Musculoskeletal: Head/Neck/Chest: normocephalic and head atraumatic Neurologic: PERRL, EOMI, accommodation nl, no face palsy, no dysarthria Psychiatric: A+Ox3, euthymic affect Principal Diagnosis Gastrointestinal bleed (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), Iron deficiency anemia, History of thromboembolism in the past (no DVTs of the legs currently), Chronic Kidney Disease stage III, on medications for Depression and Anxiety, Large hiatal hernia with an intrathoracic stomach (chronic hernia) Discharge Exam Constitutional WD/WN, vitals as above Eyes PERRL, conjunctivae normal, anicteric sclerae EOM intact bilaterally ENMT external ear and nose normal, oropharynx normal Neck trachea midline, no thyromegaly Respiratory normal respiratory effort, lungs clear to auscultation Cardiovascular RRR, no murmur, no edema Gastrointestinal (Abdomen) Inspection/Auscultation: abdomen normal to inspection and normal bowel sounds Musculoskeletal Head/Neck/Chest: normocephalic and head atraumatic Neurologic PERRL, EOMI, accommodation nl, no face palsy, no dysarthria Psychiatric A+Ox3, euthymic affect Discharge Data Allergies Allergy/AdvReac Type Severity Reaction Status Date / Time erythromycin base Allergy Intermediate "VIOLENTLY Verified 06/29/15 16:28 ILL" NSAIDS (Non-Steroidal Allergy Intermediate BLEEDING Unverified 06/29/15 16:28 Anti-Inflamma cat dander AdvReac Intermediate nasal s/s Verified 06/29/15 16:28 pollen extracts AdvReac Intermediate "seasonal" Verified 06/29/15 16:28 - nasal s/s Consultations 09/09/18 13:59 ED Decision to Admit Stat 09/09/18 14:52 Consult Gastroenterology Routine Procedures Performed Operation Date: 09/10/18 08:00 Actual Procedures p Esophagogastroduodenoscopy,push endoscopy - Irphan E Gaslightwala Ordered Studies 09/09/18 15:18 CT abd pelvis IV con only Stat 09/11/18 09:16 US venous doppler LE BI Routine Hospital Course (1) GI bleed: Gastrointestinal bleed (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 Symptoms also associated with left sided abdomen pain, and dark stools, and weakness. -admission CT abdomen 1. Mildly dilated fluid-filled mid abdominal small bowel loops. Given the lack of a high-grade transition zone, as well as the lack of gastric duodenal or proximal small bowel dilatation, the findings are likely secondary to a focal ileus. Clinical follow-up is advocated 2. Normal appendix. No evidence of acute diverticulitis. 3. No evidence of free air 4. Large hiatal hernia with an intrathoracic stomach Since her symptoms on 09/07/18, patient stopped taking her coumadin but INR on presentation still therapeutic 2.2. vitamin K was given to reverse INR as per gastroeneterology service -Hgb on admission is 10 in comparison to outpatient 07/21/18 lab of 13.6 -overnight patient's hemoglobin dropped to 7 by AM of 09/10/18. She denied blood per rectum. 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; [facility] roenterology service advised to stop fish oil -postop blood transfusion CBC was 10 on 09/10/18 and Hgb stable above 9; patient defers bridging with heparin drip to therapeutic coumadin levels, no DVTs found in the leg on this admission on 09/11/18, patient can resume home dose warfarin on discharge Patient has follow up appointment to primary care doctor to check CBC and INR 09/15/2018 11:00 AM Provider Jesica Hernandez MD Department Internal Medicine [facility] Iron deficiency anemia -given IV venofer 200 mg on 09/11/18 -can resume oral iron on discharge History of thromboembolism -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 She prefers outpatient coumadin dosing and INR follow ups with anticoagulation clinic - no DVTs of the legs currently on ultrasound of lower extremities on this admission Large hiatal hernia with an intrathoracic stomach (chronic hernia) -Patient aware of chronic hernia and should follow up with primary care doctor Patient was placed on low dose metoprolol by outpatient cardiology service for outpatient complaints of dyspnea on exertion -resting echocardiogram in 07/2018 with LV ejection fraction > 70 % -hold off metoprolol for now Patient had metoprolol held during hospital stay and should hold off metoprolol at this time Chronic Kidney Disease stage III -monitor renal function Depression/Anxiety -continue home medications Discharge Diagnosis Gastrointestinal bleed (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), Iron deficiency anemia, History of thromboembolism in the past (no DVTs of the legs currently), Chronic Kidney Disease stage III, on medications for Depression and Anxiety, Large hiatal hernia with an intrathoracic stomach (chronic hernia) Discharge to home Patient may take home dose coumadin Gastroenterology service advised to stop fish oil Patient had metoprolol held during hospital stay and should hold off metoprolol at this time Patient has follow up appointment to primary care doctor to check CBC and INR 09/15/2018 11:00 AM Provider Jesica Hernandez MD Department Internal Medicine [facility] Patient aware of chronic hernia and should follow up with primary care doctor Total Time Total Time Spent Total Time Spent (In Minutes): 40 minutes Total Time Includes: Examination of the Patient, Discharge Planning, Medication Reconciliation and Communication With Other Providers Discharge Plan Discharge Items Patient Disposition: Home - Self-Care Reason For Visit: ANEMIA,GI BLEED Discharge Diagnosis: Gastrointestinal bleed (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), Iron deficiency anemia, History of thromboembolism in the past (no DVTs of the legs currently), Chronic Kidney Disease stage III, on medications for Depression and Anxiety, Large hiatal hernia with an intrathoracic stomach (chronic hernia) Condition: Good Discharge Goals: Improve disease control Activity: Resume your previous activity Non-emergency contact: Primary Care Provider Call non-emergency contact if: you have any medication questions Follow-up/Referrals: Jose Mcmillan DO [Primary Care Provider] - Diet: Regular Addtl Provider Instructions: Discharge to home Patient may take home dose coumadin Gastroenterology service advised to stop fish oil Patient had metoprolol held during hospital stay and should hold off metoprolol at this time Patient has follow up appointment to primary care doctor to check CBC and INR 09/15/2018 11:00 AM Provider Jesica Hernandez MD Department Internal Medicine [facility] Patient aware of chronic hernia and should follow up with primary care doctor Prescriptions: Continued multivitamin Tablet 1 tab PO QAM RF: 0 oxybutynin chloride 15 mg Tablet Extended Release 24hr 15 mg PO DAILY RF: 0 trazodone 50 mg Tablet 50 mg PO HS RF: 0 cetirizine [Zyrtec] 10 mg Tablet 5 mg PO QAM RF: 0 simvastatin 10 mg Tablet 10 mg PO HS RF: 0 cyanocobalamin (vitamin B-12) [Vitamin B-12] 1,000 mcg Tablet 1,000 mcg PO DAILY RF: 0 folic acid 400 mcg Tablet 400 mcg PO DAILY RF: 0 pantoprazole 20 mg Tablet,Delayed Release (Dr/Ec) 20 mg PO BID RF: 0 lorazepam 0.5 mg Tablet 0.25 mg PO TID RF: 0 lorazepam 0.5 mg Tablet 0.5 mg PO HS RF: 0 ferrous sulfate 325 mg (65 mg iron) Tablet 325 mg PO BID RF: 0 buspirone 10 mg Tablet 10 mg PO BID RF: 0 warfarin 5 mg Tablet 7.5 mg PO DIRECTED RF: 0 gabapentin 300 mg Capsule 300 mg PO HS RF: 0 pyridoxine (vitamin B6) [Vitamin B-6] 100 mg Tablet 100 mg PO QPM RF: 0 cholecalciferol (vitamin D3) [Vitamin D3] 1,000 unit Capsule 1,000 unit PO DAILY RF: 0 guaifenesin 400 mg Tablet 400 mg PO HS RF: 0 calcium citrate-vitamin D3 [Calcium Citrate + D] 315-200 mg-unit Tablet 1 tab PO DAILY RF: 0 duloxetine 30 mg Capsule,Delayed Release(Dr/Ec) 30 mg PO QAM RF: 0 duloxetine 60 mg Capsule,Delayed Release(Dr/Ec) 60 mg PO QAM RF: 0 Discontinued metoprolol succinate 25 mg Tablet Extended Release 24 Hr 25 mg PO QAM RF: 0 omega 0-lvb-kpo-fish oil [Fish Oil] 1,000 mg (120 mg-180 mg) Capsule 1 cap PO QPM RF: 0 Stand-Alone Forms: [facility] Discharge Orders: Discharge Order (Routine); Ordered 09/12/18 Ordered By: Ced Sheppard Admission Data Admit Date/Time: 09/09/18 15:02 Attending Provider: Ced Sheppard Admit Provider: Ced Sheppard Primary Care Provider: Jose Mcmillan Other Providers: Ced Sheppard ; Becky Rodríguez Service: Telemetry
[2018-09-12 13:11] VITALS: PULSE 58
== END 2018-09-12 11:40 | disposition home or self-care (01) | DRG 378 ==
LOC: ED 10:04 → 2E 15:02